=== PATIENT | male | born 1950 | race Caucasian/White ===

== ENCOUNTER → 2016-11-19 | Outpatient (CLI) | payer OTHER, MEDICARE ==
[~2016-11-19] MED LIST: Iopamidol 755 MG/ML 500 ML Multipack Bottle IVPUSH STA
--- NOTE | 2016-11-19 13:00 | CT ---
CT of the chest, abdomen and pelvis with and without contrast. HISTORY: Abnormal weight loss TECHNIQUE: Axial CT images were obtained of the chest, abdomen and pelvis before and following admin istration of 100 mL of Isovue-370 in the right antecubital fossa without complication. Coronal and s agittal reconstructions obtained. FINDINGS: Chest: The lungs are clear without focal consolidation. No pleural effusion or pneumothorax. The hea rt is normal in size without a pericardial effusion. The thoracic aorta is normal in caliber. Mild c oronary artery calcifications are noted. The main and central pulmonary arteries are patent. No medi astinal or hilar lymphadenopathy. No axillary lymphadenopathy. Abdomen: Small hepatic and splenic cysts are noted. The adrenal glands, pancreas and gallbladder portia ear normal. There is no bulky retroperitoneal lymphadenopathy or abdominal ascites. The kidneys enha nce and function symmetrically without evidence of obstructive uropathy. Pelvis: The large and small bowel are normal in caliber without evidence of obstruction. No focal pe ricolonic inflammation or stranding. The appendix appears normal. No bulky pelvic lymphadenopathy or free pelvic fluid. There is moderate prostatomegaly. The urinary bladder guardado appear moderately th ickened however the bladder is minimally filled. Degenerative changes are noted within the shoulders. No suspicious osseous abnormalities identified. IMPRESSION: 1. No acute findings demonstrated within the abdomen or pelvis. 2. Small hepatic and splenic cysts are noted.
== END ==
LOC: MW.DI 08:23
PROVIDERS: ATTEND Surgery
DX: R07.9 Chest pain, unspecified (principal); R53.81 Other malaise; R63.4 Abnormal weight loss; K76.89 Other specified diseases of liver; D73.4 Cyst of spleen
CPT/HCPCS: 71270; 74178; Q9967

== ENCOUNTER 2016-12-19 08:43 | Day surgery (SDC) | payer OTHER, MEDICARE ==
[~2016-12-19 08:43] MED LIST changes: -Iopamidol 755 MG/ML 500 ML Multipack Bottle IVPUSH STA; +Lactated Ringers 1,000 ML IV SCH; +Sodium Chloride 0.9% 10 ML Syringe FLUSH PRN; +Sodium Chloride 0.9% 2.5 ML Syringe FLUSH PRN
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
[2016-12-19] MEDS ORDERED: Midazolam 1 MG/ML 2 ML SDV ONE (11:03)
[2016-12-19] MEDS ORDERED: Propofol 200 MG/20 ML SDV ONE ×2 (11:03→12:04)
[2016-12-19] MEDS ORDERED: Lidocaine 2% 5 ML SDV ONE (11:03)
[2016-12-19] MEDS ORDERED: fentaNYL 100 MCG/2 ML SDV ONE (11:04)
--- NOTE | 2016-12-19 12:25 | PCM.OPNOTE ---
- General Post-Op/Procedure Note Date of Surgery/Procedure: 12/19/16 Operative Procedure(s): Diagnostic EGD and colonoscopy Findings: Normal upper GI and colonoscopy Pre Op Diagnosis: Unexpected weight loss Post-Op Diagnosis: Same Anesthesia Technique: MAC Primary Surgeon: Jazzy Sharma Condition: Good
--- NOTE | 2016-12-19 13:02 | PCM.POSTAN ---
POST ANESTHESIA ASSESSMENT - MENTAL STATUS Mental Status: alert, oriented - RESPIRATORY Respiratory Status: respiratory rate WNL, airway patent, O2 saturation stable - CARDIOVASCULAR CV Status: pulse rate WNL, blood pressure stable - GASTROINTESTINAL GI Status: no symptoms - POST OP HYDRATION Hydration Status: adequate & stable - OBSERVATIONS Free Text/Narrative:: no anesthesia problems
[2016-12-19 13:26] VITALS: BP 140/83
--- NOTE | 2016-12-19 20:45 | OR ---
SURGEON: KRISTEN DAVIDSON MD DATE OF PROCEDURE: 12/19/2016 PREOPERATIVE DIAGNOSIS: Unexpected weight loss. POSTOPERATIVE DIAGNOSIS: Normal upper and lower endoscopy studies. PROCEDURE PERFORMED: Diagnostic EGD and colonoscopy. INSTRUMENT USED: Endoscope and colonoscope. ANESTHESIA: MAC. EXTENT OF EXAM: To the second portion of duodenum during the endoscopic portion, to the cecum during the colonoscopic portion. PREPARATION: Fair for the colonoscopy. LIMITATIONS: None. INDICATIONS FOR EXAMINATION: The patient is a 65-year-old male, who presented to clinic with a vague constellation of complaints, most concerning of which was unexpected weight loss. The patient had a CT of the chest, abdomen, pelvis performed which appeared normal. The patient was cleared medically to have further investigation done by endoscopic means. The patient and I discussed the need for a diagnostic EGD and colonoscopy. I discussed the procedures as well as expected perioperative course. I discussed the risks, including bleeding, infection, or damage to surrounding structures, including perforation. The patient verbalized understanding and wished to proceed. PROCEDURE IN DETAIL: The patient was brought to the endoscopy suite and placed in a beach chair position. A time-out was completed verifying the patient's name, age, date of , allergies, and procedure to be performed. A bite block was placed in the patient's mouth and monitored anesthesia care was induced. Continuous oxygen was provided via nasal cannula throughout the procedure. After adequate sedation was achieved. A well lubricated endoscope was placed over the patient's tongue down into the esophagus and advanced under direct visualization to the second portion of the duodenum. A photograph was taken of the second portion of the duodenum. The duodenal mucosa all appeared normal. The scope was then brought into the stomach and photographs taken of the pylorus as well as the esophageal hiatus. The gastric mucosa and anatomy all appeared normal. Biopsies were taken of the gastric body, fundus, and antrum via cold biopsy forceps and sent for H. pylori testing. The scope was then brought into the esophagus and the esophageal mucosa carefully inspected. No abnormalities were noted. The scope was then removed from the patient and the bite block taken out of the patient's mouth. We then began the colonoscopic portion of the exam. The patient was placed in the left lateral decubitus position. A digital rectal exam was performed, which was normal. A well lubricated colonoscope was then inserted in the rectum and advanced under direct visualization to the level of the cecum. The cecum was identified by both visual and anatomic landmarks. A photograph was taken of the cecal cap. I attempted to retroflex the scope within the cecum, but was unable to do so secondary to looping of the scope within the sigmoid colon. The scope was straightened out and fully withdrawn while examining the color, texture, anatomy, integrity, mucosa from the cecum to the anal canal. The findings were consistent with normal colonic mucosa. The scope was then brought into the rectum and retroflexed to allow visualization of the anal canal opening. This appeared normal and a photograph was taken. The scope was then straightened out and removed from the patient. The patient was then transferred to the recovery room in stable condition. Cecum to anus time was 12 minutes. ENDOSCOPIC DIAGNOSIS: Normal EGD and colonoscopy. RECOMMENDATION: Follow up in the clinic in 10 years. We will send patient back to his primary care provider for any further workup. DAVID CUBA /[id number] VALENTÍN
== END 2016-12-19 13:18 | disposition home or self-care (01) ==
LOC: MW.SDS 08:43
PROVIDERS: ATTEND Surgery
PROC: 0DJD8ZZ Inspection of Lower Intestinal Tract, Via Natural or Artificial Opening Endoscopic (ICD-10-PCS; principal; 2016-12-19)
PROC: 0DB48ZX Excision of Esophagogastric Junction, Via Natural or Artificial Opening Endoscopic, Diagnostic (ICD-10-PCS; 2016-12-19)
PROC: 0DB68ZX Excision of Stomach, Via Natural or Artificial Opening Endoscopic, Diagnostic (ICD-10-PCS; 2016-12-19)
DX: R63.4 Abnormal weight loss (principal); G47.30 Sleep apnea, unspecified; K21.9 Gastro-esophageal reflux disease without esophagitis; M19.90 Unspecified osteoarthritis, unspecified site; F41.9 Anxiety disorder, unspecified; F17.210 Nicotine dependence, cigarettes, uncomplicated; Z98.890 Other specified postprocedural states; Z79.899 Other long term (current) drug therapy
CPT/HCPCS: 43239; 45378; J2250; J3010; J7120; 00740; 88305; 88312; J2704

== ENCOUNTER 2017-03-22 16:30 | Emergency (ER) | payer MEDICARE, OTHER ==
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
[2017-03-22 19:41] VITALS: BP 112/70
--- NOTE | 2017-03-24 13:36 | CT ---
EXAM DATE: 03/22/17 PATIENT'S AGE: 66 Patient: SHIRA DURAN Facility: [place], [place] Site . Site : 1950 Study: CT Head WO CONT [id number]/[id number] 5:46:14 PM Ordering Physician: Adriano Aviles Final Report: Indication: Swelling and ecchymosis after injury. Comparison: None available. Technique: Multi detector noncontrast images posterior fossa to thoracic inlet. Findings: No mass, mass effect or midline shift. No intra-axial or extra-axial hemorrhage or abnormal fluid. Mildly prominent for stated age ventricles and sulci suggests mild global atrophy. Moderately prominent infiltrating subcutaneous air through the right zygoma and cheek out of the [id number] inferiorly and into the master fossa. This extends to the inferior anterior right frontal skull margin. Tear or portal air but non behind the conus. Globes are symmetric. Retrobulbar are soft tissues are normal. No evident fracture in the field of view. Temporomandibular alignment is anatomic. Impression: 1. Moderately extensive soft tissue air right face and periorbital region without fracture in the field of view. CT of the maxi facial structures recommended. 2. Mild diffuse cerebral and cerebellar atrophy. No significant acute intracranial findings. Please note that all CT scans at this facility use dose modulation, iterative reconstruction, and/or weight-based dosing when appropriate to reduce radiation dose to as low as reasonably achievable. Dictated by Tate Baez MD @ Mar 22 2017 5:55PM (Electronic Signature) Report Signed by Proxy. VALENTÍN
== END 2017-03-22 18:30 | disposition home or self-care (01) ==
LOC: MW.ED 16:30
DX: S00.83XA Contusion of other part of head, initial encounter (principal); K21.9 Gastro-esophageal reflux disease without esophagitis; W01.198A Fall on same level from slipping, tripping and stumbling with subsequent striking against other object, initial encounter
CPT/HCPCS: 70450; 70450-26; 93005; 99282; 99284-25

== ENCOUNTER 2018-12-01 18:07 | Emergency (ER) | payer MEDICARE ==
[2018-12-01] MEDS ORDERED: Sodium Chloride 0.9% 10 ML Syringe FLUSH PRN (18:08)
[2018-12-01] MEDS ORDERED: Sodium Chloride 0.9% 2.5 ML Syringe FLUSH PRN (18:08)
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
[2018-12-01] MEDS ORDERED: Aspirin 81 MG Tab.Chew PO ONE (18:17)
--- NOTE | 2018-12-01 19:05 | CR ---
INDICATION: Chest pain TECHNIQUE: Chest radiograph 1 view COMPARISON: None FINDINGS: Mediastinum: The mediastinum is normal in appearance. The heart silhouette is normal in size and morphology. Lung: Bilateral hyperinflation is present and suggestive of moderate pulmonary emphysema. No sign of pleural effusion seen. No pneumothorax is identified. Musculoskeletal: Unremarkable for age. IMPRESSION: 1. Bilateral hyperinflation is present and suggestive of moderate pulmonary emphysema. Dictated by: Jose Miguel Marrufo MD @ 12/01/2018 19:03:26 (Electronically Signed)
[2018-12-01 19:12] LABS: CHLORIDE,CL 105 mmol/L (98-107); SODIUM,NA 140 mmol/L (136-148)
[2018-12-01 19:52] VITALS: BP 136/70
== END 2018-12-01 19:51 | disposition home or self-care (01) ==
LOC: MW.ED 18:07
DX: R07.9 Chest pain, unspecified (principal)
CPT/HCPCS: 36415; 71045; 80053; 84484; 85025; 93005; 99284; A9270

== ENCOUNTER 2019-01-08 19:28 | Emergency (ER) | payer MEDICARE ==
[2019-01-08] MEDS ORDERED: Sodium Chloride 0.9% 2.5 ML Syringe FLUSH PRN (19:31)
[2019-01-08] MEDS ORDERED: Aspirin 81 MG Tab.Chew PO ONE (19:31)
[2019-01-08] MEDS ORDERED: Pantoprazole 40 MG Vial IVPUSH ONE (19:31)
[2019-01-08] MEDS ORDERED: Sodium Chloride 0.9% 10 ML Syringe FLUSH PRN (19:31)
[2019-01-08] MEDS ORDERED: Ketorolac 30 MG/ML SDV IVPUSH ONE (19:31)
[2019-01-08] MEDS ORDERED: Water For Injection, Sterile 20 ML SDV INJECT ONE (19:33)
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
[2019-01-08 19:39] VITALS: BP 156/75
[2019-01-08 19:59] LABS: CHLORIDE,CL 104 mmol/L (98-107); SODIUM,NA 141 mmol/L (136-148)
--- NOTE | 2019-01-08 20:24 | CR ---
Indication: Chest pain. Shortness of breath. Technique: A single AP portable view of the chest was obtained. Comparison: December 01, 2018. Findings: The heart is normal in size. The lungs are clear. No infiltrate, pleural effusion, or pneumothorax is identified. Impression: No acute cardiopulmonary process. Dictated by Mya Locke MD @ Jan 08 2019 8:17PM Signed by Dr. Mya Locke @ Jan 08 2019 8:23PM
== END 2019-01-08 20:59 | disposition home or self-care (01) ==
LOC: MW.ED 19:28
DX: R07.89 Other chest pain (principal); J44.9 Chronic obstructive pulmonary disease, unspecified
CPT/HCPCS: 71045; 80053; 81003; 82150; 83690; 84484; 85025; 86677; 93005; 96374; 96375; 99285; A9270; C9113; J1885

== ENCOUNTER 2019-11-02 17:25 | Emergency (ER) | payer MEDICARE, OTHER ==
[2019-11-02] MEDS ORDERED: Ziprasidone HCl 20 MG Cap PO STA ×2 (17:57→19:09)
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
[2019-11-02 19:52] VITALS: BP 127/86; PULSE 64
== END 2019-11-02 19:39 | disposition home or self-care (01) ==
LOC: MW.ED 17:25
DX: G31.84 Mild cognitive impairment of uncertain or unknown etiology (principal); R45.1 Restlessness and agitation; Z91.19 Patient's noncompliance with other medical treatment and regimen; K21.9 Gastro-esophageal reflux disease without esophagitis; F41.9 Anxiety disorder, unspecified; F32.9 Major depressive disorder, single episode, unspecified; Z79.899 Other long term (current) drug therapy
CPT/HCPCS: 93005; 99285; A9270; 99283

== ENCOUNTER 2020-01-26 17:25 | Emergency (ER) | payer MEDICARE, OTHER ==
[2020-01-26] MEDS ORDERED: Sodium Chloride 0.9% 10 ML Syringe FLUSH PRN (17:41)
[2020-01-26] MEDS ORDERED: Sodium Chloride 0.9% 2.5 ML Syringe FLUSH PRN (17:41)
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
[2020-01-26 17:54] VITALS: PULSE 77
--- NOTE | 2020-01-26 18:20 | CR ---
Chest: Portable view of the chest was obtained in AP projection. Comparison: Prior chest x-ray of 01/08/19. Heart size and mediastinum are normal. Lungs are clear. No acute parenchymal change is seen. Impression: 1. Nothing acute is seen on portable chest x-ray. Diagnostic code #1 This report was dictated in MDT
[2020-01-26] MEDS ORDERED: Ziprasidone HCl 20 MG Cap PO STA (18:21)
[2020-01-26 18:30] LABS: BLOOD UREA NITROGEN,BUN 17 mg/dL (7.0-18.0); CARBON DIOXIDE,CO2 26.3 mmol/L (21.0-32.0); CHLORIDE,CL 106 mmol/L (98-107); GLUCOSE RANDOM 96 mg/dL (74-106); POTASSIUM,K 4.3 mmol/L (3.5-5.1); SODIUM,NA 142 mmol/L (136-148)
[2020-01-26 20:00] VITALS: BP 134/86
== END 2020-01-26 19:57 | disposition home or self-care (01) ==
LOC: MW.ED 17:25
DX: N39.0 Urinary tract infection, site not specified (principal); F41.9 Anxiety disorder, unspecified; F32.9 Major depressive disorder, single episode, unspecified; K21.9 Gastro-esophageal reflux disease without esophagitis; Z79.899 Other long term (current) drug therapy
CPT/HCPCS: 36415; 71045; 80053; 81001; 84484; 85025; 93005; 99285; A9270; 99283

== ENCOUNTER 2020-01-27 13:14 | Inpatient (IN) | payer MEDICARE, OTHER ==
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
[2020-01-27] MEDS ORDERED: OLANZapine 5 MG Tab.DIS PO ONE ×2 (14:16→14:30)
--- NOTE | 2020-01-27 15:49 | CT ---
Head CT Technique: Multiple axial sections through the brain were obtained. Intravenous contrast was not utilized. Comparison: Previous head CT study of 03/22/17. Findings: Ventricles along with basal cisterns and sulci over the convexities are moderately prominent. Sulci over the cerebellar convexities are mildly prominent. 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 Very minimal diminished density is noted within the periventricular-like matter which is most likely due to small vessel ischemic demyelination change. No other abnormal parenchymal densities are seen. No evidence of intracranial hemorrhage. No midline shift or mass-effect is seen. Bone window settings were reviewed. Chronic opacification within the inferior right mastoid sinus is noted. Visualized paranasal sinuses show nothing acute. No acute calvarial finding is seen. Impression: 1. Senescent change as described above. 2. No acute intracranial abnormality is identified. Diagnostic code #2 This report was dictated in MDT
[2020-01-27] MEDS ORDERED: Ziprasidone Mesylate 20 MG Vial IM ONE (16:16)
[2020-01-27] MEDS ORDERED: Water For Injection, Sterile 20 ML SDV INJECT ONE (16:16)
[2020-01-27] MEDS ORDERED: Albuterol/Ipratropium 3.0-0.5 MG/3 ML Neb Soln NEB PRN (16:46)
[2020-01-27] MEDS ORDERED: OLANZapine 10 MG Vial IM PRN (16:48)
[2020-01-27] MEDS ORDERED: diphenhydrAMINE 50 MG/ML SDV IM PRN (16:49)
[2020-01-27] MEDS ORDERED: Haloperidol Lactate 5 MG/ML SDV IM PRN (17:29)
[2020-01-27] MEDS ORDERED: LORazepam 2 MG/ML SDV IM PRN (17:30)
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
[2020-01-27] MEDS: QUEtiapine 100 MG Tab PO SCH ×2 (18:04→20:06)
[2020-01-27] MEDS: Enoxaparin 40 MG/0.4 ML Syringe SUBCUT SCH (18:04)
[2020-01-27] MEDS: Donepezil 10 MG Tab PO SCH (20:06)
[2020-01-27] MEDS ORDERED: QUEtiapine 25 MG Tab PO SCH (21:00)
[2020-01-28 06:26] LABS: BLOOD UREA NITROGEN,BUN 17 mg/dL (7.0-18.0); CARBON DIOXIDE,CO2 28.5 mmol/L (21.0-32.0); CHLORIDE,CL 108 mmol/L (98-107); GLUCOSE RANDOM 92 mg/dL (74-106); POTASSIUM,K 3.9 mmol/L (3.5-5.1); SODIUM,NA 143 mmol/L (136-148)
--- NOTE | 2020-01-28 10:10 | PCM.PN ---
- General Info Date of Service: 01/28/20 Admission Dx/Problem (Free Text): Admission Diagnosis/Problem Admission Diagnosis/Problem Altered mental status Subjective Update: Patient seen and examined at bedside, no acute distress, anxious to go home, paranoid about changing his dosages of meds. - Review of Systems General: Denies: Fever, Weakness, Fatigue Pulmonary: Denies: Shortness of Breath, Pleuritic Chest Pain Cardiovascular: Denies: Chest Pain, Palpitations, Dyspnea on Exertion Gastrointestinal: Denies: Abdominal Pain, Constipation Genitourinary: Denies: Dysuria, Frequency, Burning Neurological: Reports: Confusion. Denies: Dizziness, Headache, Syncope Psychiatric: Reports: Confusion, Mood Lability, Anxiety, Agitation - Patient Data Vitals - Most Recent: Last Vital Signs Temp 36.0 C L 01/28/20 07:53 Pulse 45 L 01/28/20 07:53 Resp 18 01/28/20 07:53 BP 133/71 01/28/20 07:53 Pulse Ox 97 01/28/20 07:53 Weight - Most Recent: 83.234 kg I&O - Last 24 Hours: Intake & Output 01/27/20 01/28/20 01/28/20 22:59 06:59 14:59 Intake Total 395 Output Total 200 Balance 195 Lab Results Last 24 Hours: Laboratory Results - last 24 hr 01/27/20 01/27/20 01/28/20 Range/Units 15:05 15:05 05:25 WBC 5.36 (4.0-11.0) K/uL RBC 4.25 L (4.50-5.90) M/uL Hgb 13.3 (13.0-17.0) g/dL Hct 39.3 (38.0-50.0) % MCV 92.5 (80.0-98.0) fL MCH 31.3 (27.0-32.0) pg MCHC 33.8 (31.0-37.0) g/dL RDW Std Deviation 43.9 (28.0-62.0) fl RDW Coeff of Nilay 13 (11.0-15.0) % Plt Count 200 (150-400) K/uL MPV 10.20 (7.40-12.00) fL Neut % (Auto) 46.3 L (48.0-80.0) % Lymph % (Auto) 36.8 (16.0-40.0) % Gem % (Auto) 12.9 (0.0-15.0) % Eos % (Auto) 3.4 (0.0-7.0) % Baso % (Auto) 0.6 (0.0-1.5) % Neut # (Auto) 2.5 (1.4-5.7) K/uL Lymph # (Auto) 2.0 (0.6-2.4) K/uL Gem # (Auto) 0.7 (0.0-0.8) K/uL Eos # (Auto) 0.2 (0.0-0.7) K/uL Baso # (Auto) 0.0 (0.0-0.1) K/uL Sodium (136-148) mmol/L Potassium (3.5-5.1) mmol/L Chloride (98-107) mmol/L Carbon Dioxide (21.0-32.0) mmol/L BUN (7.0-18.0) mg/dL Creatinine (0.8-1.3) mg/dL Est Cr Clr Drug Dosing mL/min Estimated GFR (MDRD) ml/min Glucose (74-106) mg/dL Calcium (8.5-10.1) mg/dL Phosphorus (2.6-4.7) mg/dL Magnesium (1.8-2.4) mg/dL Urine Color YELLOW Urine Appearance CLEAR Urine pH 5.5 (5.0-8.0) Ur Specific [place] >= 1.030 (1.001-1.035) Urine Protein 30 H (NEGATIVE) mg/dL Urine Glucose (UA) NEGATIVE (NEGATIVE) mg/dL Urine Ketones NEGATIVE (NEGATIVE) mg/dL Urine Occult Blood NEGATIVE (NEGATIVE) Urine Nitrite NEGATIVE (NEGATIVE) Urine Bilirubin NEGATIVE (NEGATIVE) Urine Urobilinogen 0.2 (<2.0) EU/dL Ur Leukocyte Esterase NEGATIVE (NEGATIVE) Urine RBC NONE SEEN (0-2/HPF) Urine WBC 2-6 (0-5/HPF) Ur Epithelial Cells RARE (NONE-FEW) Calcium Oxalate Crystal RARE (NEGATIVE) Amorphous Sediment FEW (NEGATIVE) Urine Bacteria FEW (NEGATIVE) Urine Mucus FEW (NONE-MOD) Urine Sperm FEW (NEGATIVE) Urine Opiates Screen NEGATIVE (NEGATIVE) Ur Oxycodone Screen NEGATIVE (NEGATIVE) Urine Methadone Screen NEGATIVE (NEGATIVE) Ur Barbiturates Screen NEGATIVE (NEGATIVE) Ur Phencyclidine Scrn NEGATIVE (NEGATIVE) Ur Amphetamine Screen NEGATIVE (NEGATIVE) U Methamphetamines Scrn NEGATIVE (NEGATIVE) U Benzodiazepines Scrn NEGATIVE (NEGATIVE) U Cocaine Metab Screen NEGATIVE (NEGATIVE) U Marijuana (THC) Screen NEGATIVE (NEGATIVE) 01/28/20 Range/Units 05:25 WBC (4.0-11.0) K/uL RBC (4.50-5.90) M/uL Hgb (13.0-17.0) g/dL Hct (38.0-50.0) % MCV (80.0-98.0) fL MCH (27.0-32.0) pg MCHC (31.0-37.0) g/dL RDW Std Deviation (28.0-62.0) fl RDW Coeff of Nilay (11.0-15.0) % Plt Count (150-400) K/uL MPV (7.40-12.00) fL Neut % (Auto) (48.0-80.0) % Lymph % (Auto) (16.0-40.0) % Gem % (Auto) (0.0-15.0) % Eos % (Auto) (0.0-7.0) % Baso % (Auto) (0.0-1.5) % Neut # (Auto) (1.4-5.7) K/uL Lymph # (Auto) (0.6-2.4) K/uL Gem # (Auto) (0.0-0.8) K/uL Eos # (Auto) (0.0-0.7) K/uL Baso # (Auto) (0.0-0.1) K/uL Sodium 143 (136-148) mmol/L Potassium 3.9 (3.5-5.1) mmol/L Chloride 108 H (98-107) mmol/L Carbon Dioxide 28.5 (21.0-32.0) mmol/L BUN 17 (7.0-18.0) mg/dL Creatinine 0.9 (0.8-1.3) mg/dL Est Cr Clr Drug Dosing 81.34 mL/min Estimated GFR (MDRD) > 60.0 ml/min Glucose 92 (74-106) mg/dL Calcium 8.3 L (8.5-10.1) mg/dL Phosphorus 3.0 (2.6-4.7) mg/dL Magnesium 1.9 (1.8-2.4) mg/dL Urine Color Urine Appearance Urine pH (5.0-8.0) Ur Specific [place] (1.001-1.035) Urine Protein (NEGATIVE) mg/dL Urine Glucose (UA) (NEGATIVE) mg/dL Urine Ketones (NEGATIVE) mg/dL Urine Occult Blood (NEGATIVE) Urine Nitrite (NEGATIVE) Urine Bilirubin (NEGATIVE) Urine Urobilinogen (<2.0) EU/dL Ur Leukocyte Esterase (NEGATIVE) Urine RBC (0-2/HPF) Urine WBC (0-5/HPF) Ur Epithelial Cells (NONE-FEW) Calcium Oxalate Crystal (NEGATIVE) Amorphous Sediment (NEGATIVE) Urine Bacteria (NEGATIVE) Urine Mucus (NONE-MOD) Urine Sperm (NEGATIVE) Urine Opiates Screen (NEGATIVE) Ur Oxycodone Screen (NEGATIVE) Urine Methadone Screen (NEGATIVE) Ur Barbiturates Screen (NEGATIVE) Ur Phencyclidine Scrn (NEGATIVE) Ur Amphetamine Screen (NEGATIVE) U Methamphetamines Scrn (NEGATIVE) U Benzodiazepines Scrn (NEGATIVE) U Cocaine Metab Screen (NEGATIVE) U Marijuana (THC) Screen (NEGATIVE) Med Orders - Current: Current Medications Albuterol/Ipratropium (Duoneb 3.0-0.5 Mg/3 Ml) 3 ml NEB Q4HRRT PRN PRN Reason: Shortness Of Breath/wheezing Diphenhydramine HCl (Benadryl) 25 mg IM Q4H PRN PRN Reason: Agitation Donepezil HCl (Aricept) 10 mg PO BEDTIME [facility] Last Admin: 01/27/20 20:06 Dose: 10 mg Enoxaparin Sodium (Lovenox) 40 mg SUBCUT Q24H [facility] Last Admin: 01/27/20 18:04 Dose: 40 mg Haloperidol Lactate (Haldol) 5 mg IM Q6H PRN PRN Reason: Agitation Lorazepam (Ativan) 2 mg IM Q4H PRN PRN Reason: Agitation Quetiapine Fumarate (Seroquel) 100 mg PO BEDTIME [facility] Last Admin: 01/27/20 20:06 Dose: Not Given Discontinued Medications Olanzapine (Zyprexa Zydis) 10 mg PO ONETIME ONE Stop: 01/27/20 14:31 Last Admin: 01/27/20 15:02 Dose: 10 mg Olanzapine (Zyprexa) 5 mg IM Q6H PRN PRN Reason: Agitation Quetiapine Fumarate (Seroquel) 25 mg PO BID [facility] Sterile Water (Sterile Water For Injection) 1.2 ml INJECT ONETIME ONE Stop: 01/27/20 16:17 Last Admin: 01/27/20 17:07 Dose: 1.2 ml Ziprasidone (Geodon) 20 mg IM ONETIME ONE Stop: 01/27/20 16:17 Last Admin: 01/27/20 17:06 Dose: 20 mg - Exam General: Alert, Oriented, No Acute Distress Neck: Supple Lungs: Clear to Auscultation, Normal Respiratory Effort Cardiovascular: Regular Rate, Regular Rhythm Extremities: Normal Inspection, Normal Range of Motion Peripheral Pulses: 3+: Dorsalis Pedis (L), Dorsalis Pedis (R) Neurological: Normal Gait, Reflexes Equal Bilateral, Sensation Intact Psy/Mental Status: Alert, Labile Mood, Anxious, Hallucinations (sees dots on his hands) Sepsis Event Note - Evaluation Sepsis Screening Result: No Definite Risk - Focused Exam Vital Signs: Vital Signs Temp Pulse Pulse Resp BP Pulse Ox 01/28/20 07:53 36.0 C L 42 L 45 L 18 133/71 97 01/28/20 04:00 36.5 C 54 L 18 118/71 98 Date Exam was Performed: 01/29/20 Time Exam was Performed: 10:32 - Problem List & Annotations (1) Altered mental state SNOMED Code(s): 366601471 Code(s): R41.82 - ALTERED MENTAL STATUS, UNSPECIFIED Status: Acute Current Visit: Yes (2) Fronto-temporal dementia SNOMED Code(s): 990380094 Code(s): G31.09 - OTHER FRONTOTEMPORAL DEMENTIA; F02.80 - DEMENTIA IN OTH DISEASES CLASSD ELSWHR W/O BEHAVRL DISTURB Status: Acute Current Visit: Yes (3) Medication noncompliance due to cognitive impairment SNOMED Code(s): 836048312, 120695263 Code(s): Z91.14 - PATIENT'S OTHER NONCOMPLIANCE WITH MEDICATION REGIMEN Status: Acute Current Visit: No - Problem List Review Problem List Initiated/Reviewed/Updated: Yes - My Orders Last 24 Hours: My Active Orders 01/27/20 16:46 Oxygen Therapy [RC] PRN VTE/DVT Education [RC] Q12H Vital Signs [RC] Q4H Albuterol/Ipratropium [DuoNeb 3.0-0.5 MG/3 ML] 3 ml NEB Q4HRRT PRN Resuscitation Status Routine 01/27/20 16:47 RT Aerosol Therapy [RC] ASDIRECTED 01/27/20 16:49 diphenhydrAMINE [Benadryl] 25 mg IM Q4H PRN 01/27/20 16:54 Consult to Case Management/[employer]retcher [employer] Drier [CONS] Routine 01/27/20 17:00 Enoxaparin [Lovenox] 40 mg SUBCUT Q24H 01/27/20 17:23 QUEtiapine [SEROqueL] 100 mg PO BEDTIME 01/27/20 17:29 Haloperidol Lactate [Haldol] 5 mg IM Q6H PRN 01/27/20 17:30 LORazepam [Ativan] 2 mg IM Q4H PRN 01/27/20 19:17 Consult to Physician [CONS] Routine 01/27/20 19:18 Notify Provider Consults [RC] ASDIRECTED 01/27/20 21:00 Donepezil [Aricept] 10 mg PO BEDTIME 01/27/20 Dinner Heart Healthy Diet [DIET] - Plan Plan:: 69 y/o M admitted for AMS Work up didn't revele any metabolic cause CT scan noted, 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 Sharp, Will start Seroquel 100 mg bedtime, 50 mg in AM Haldol, Ativan, Benadryl PRN agitation Hold Lexapro Lovenox for DVT ppx I spoke with patients Neurologist, states patient needs to be placed in a Memory care unit due to worsening Dementia Dr Sharp consulted to assess if patient is safe to home, or if he needs to be placed directly from the hospital into a memory care unit,
--- NOTE | 2020-01-28 13:11 | PCM.CONSN ---
- General Info Date of Service: 01/28/20 Admission Dx/Problem (Free Text): Admission Diagnosis/Problem Admission Diagnosis/Problem Altered mental status Subjective Update: He started having problems with visual impairment and communication difficulty around to 2016. By first visit in neurology clinic in January 2019, he was having paranoia, hallucinations. He was started on Seroquel which helped with agitation, but he continued to have recurrent bouts of agitation and will wander off endangering himself by walking in streets. I spoke to his this morning. For the last 2 weeks, he "hates me hates his daughter and hates everybody around him". On Friday, he was standing on the road in front of [employer]'s twirling around. He was actually jumping in front of cars as well. He wouldn't get into the daughter's care. Police got him to get into vehicle and took him to ED, and he was released. He was back in the ED yesterday after doing the same thing. He had refused to take his medication Fri. - Patient Data Vitals - Most Recent: Last Vital Signs Temp 36.3 C 01/28/20 12:00 Pulse 57 L 01/28/20 12:00 Resp 18 01/28/20 12:00 BP 133/71 01/28/20 12:00 Pulse Ox 96 01/28/20 12:00 Weight - Most Recent: 83.234 kg I&O - Last 24 Hours: Intake & Output 01/27/20 01/28/20 01/28/20 22:59 06:59 14:59 Intake Total 395 Output Total 200 Balance 195 Lab Results Last 24 Hours: Laboratory Results - last 24 hr 01/27/20 01/27/20 01/28/20 Range/Units 15:05 15:05 05:25 WBC 5.36 (4.0-11.0) K/uL RBC 4.25 L (4.50-5.90) M/uL Hgb 13.3 (13.0-17.0) g/dL Hct 39.3 (38.0-50.0) % MCV 92.5 (80.0-98.0) fL MCH 31.3 (27.0-32.0) pg MCHC 33.8 (31.0-37.0) g/dL RDW Std Deviation 43.9 (28.0-62.0) fl RDW Coeff of Nilay 13 (11.0-15.0) % Plt Count 200 (150-400) K/uL MPV 10.20 (7.40-12.00) fL Neut % (Auto) 46.3 L (48.0-80.0) % Lymph % (Auto) 36.8 (16.0-40.0) % Saline % (Auto) 12.9 (0.0-15.0) % Eos % (Auto) 3.4 (0.0-7.0) % Baso % (Auto) 0.6 (0.0-1.5) % Neut # (Auto) 2.5 (1.4-5.7) K/uL Lymph # (Auto) 2.0 (0.6-2.4) K/uL Saline # (Auto) 0.7 (0.0-0.8) K/uL Eos # (Auto) 0.2 (0.0-0.7) K/uL Baso # (Auto) 0.0 (0.0-0.1) K/uL Sodium (136-148) mmol/L Potassium (3.5-5.1) mmol/L Chloride (98-107) mmol/L Carbon Dioxide (21.0-32.0) mmol/L BUN (7.0-18.0) mg/dL Creatinine (0.8-1.3) mg/dL Est Cr Clr Drug Dosing mL/min Estimated GFR (MDRD) ml/min Glucose (74-106) mg/dL Calcium (8.5-10.1) mg/dL Phosphorus (2.6-4.7) mg/dL Magnesium (1.8-2.4) mg/dL TSH 3rd Generation (0.36-3.74) uIU/mL Urine Color YELLOW Urine Appearance CLEAR Urine pH 5.5 (5.0-8.0) Ur Specific [place] >= 1.030 (1.001-1.035) Urine Protein 30 H (NEGATIVE) mg/dL Urine Glucose (UA) NEGATIVE (NEGATIVE) mg/dL Urine Ketones NEGATIVE (NEGATIVE) mg/dL Urine Occult Blood NEGATIVE (NEGATIVE) Urine Nitrite NEGATIVE (NEGATIVE) Urine Bilirubin NEGATIVE (NEGATIVE) Urine Urobilinogen 0.2 (<2.0) EU/dL Ur Leukocyte Esterase NEGATIVE (NEGATIVE) Urine RBC NONE SEEN (0-2/HPF) Urine WBC 2-6 (0-5/HPF) Ur Epithelial Cells RARE (NONE-FEW) Calcium Oxalate Crystal RARE (NEGATIVE) Amorphous Sediment FEW (NEGATIVE) Urine Bacteria FEW (NEGATIVE) Urine Mucus FEW (NONE-MOD) Urine Sperm FEW (NEGATIVE) Urine Opiates Screen NEGATIVE (NEGATIVE) Ur Oxycodone Screen NEGATIVE (NEGATIVE) Urine Methadone Screen NEGATIVE (NEGATIVE) Ur Barbiturates Screen NEGATIVE (NEGATIVE) Ur Phencyclidine Scrn NEGATIVE (NEGATIVE) Ur Amphetamine Screen NEGATIVE (NEGATIVE) U Methamphetamines Scrn NEGATIVE (NEGATIVE) U Benzodiazepines Scrn NEGATIVE (NEGATIVE) U Cocaine Metab Screen NEGATIVE (NEGATIVE) U Marijuana (THC) Screen NEGATIVE (NEGATIVE) 01/28/20 01/28/20 Range/Units 05:25 05:25 WBC (4.0-11.0) K/uL RBC (4.50-5.90) M/uL Hgb (13.0-17.0) g/dL Hct (38.0-50.0) % MCV (80.0-98.0) fL MCH (27.0-32.0) pg MCHC (31.0-37.0) g/dL RDW Std Deviation (28.0-62.0) fl RDW Coeff of [place]ay (11.0-15.0) % Plt Count (150-400) K/uL MPV (7.40-12.00) fL Neut % (Auto) (48.0-80.0) % Lymph % (Auto) (16.0-40.0) % Saline % (Auto) (0.0-15.0) % Eos % (Auto) (0.0-7.0) % Baso % (Auto) (0.0-1.5) % Neut # (Auto) (1.4-5.7) K/uL Lymph # (Auto) (0.6-2.4) K/uL Saline # (Auto) (0.0-0.8) K/uL Eos # (Auto) (0.0-0.7) K/uL Baso # (Auto) (0.0-0.1) K/uL Sodium 143 (136-148) mmol/L Potassium 3.9 (3.5-5.1) mmol/L Chloride 108 H (98-107) mmol/L Carbon Dioxide 28.5 (21.0-32.0) mmol/L BUN 17 (7.0-18.0) mg/dL Creatinine 0.9 (0.8-1.3) mg/dL Est Cr Clr Drug Dosing 81.34 mL/min Estimated GFR (MDRD) > 60.0 ml/min Glucose 92 (74-106) mg/dL Calcium 8.3 L (8.5-10.1) mg/dL Phosphorus 3.0 (2.6-4.7) mg/dL Magnesium 1.9 (1.8-2.4) mg/dL TSH 3rd Generation 2.87 (0.36-3.74) uIU/mL Urine Color Urine Appearance Urine pH (5.0-8.0) Ur Specific [place] (1.001-1.035) Urine Protein (NEGATIVE) mg/dL Urine Glucose (UA) (NEGATIVE) mg/dL Urine Ketones (NEGATIVE) mg/dL Urine Occult Blood (NEGATIVE) Urine Nitrite (NEGATIVE) Urine Bilirubin (NEGATIVE) Urine Urobilinogen (<2.0) EU/dL Ur Leukocyte Esterase (NEGATIVE) Urine RBC (0-2/HPF) Urine WBC (0-5/HPF) Ur Epithelial Cells (NONE-FEW) Calcium Oxalate Crystal (NEGATIVE) Amorphous Sediment (NEGATIVE) Urine Bacteria (NEGATIVE) Urine Mucus (NONE-MOD) Urine Sperm (NEGATIVE) Urine Opiates Screen (NEGATIVE) Ur Oxycodone Screen (NEGATIVE) Urine Methadone Screen (NEGATIVE) Ur Barbiturates Screen (NEGATIVE) Ur Phencyclidine Scrn (NEGATIVE) Ur Amphetamine Screen (NEGATIVE) U Methamphetamines Scrn (NEGATIVE) U Benzodiazepines Scrn (NEGATIVE) U Cocaine Metab Screen (NEGATIVE) U Marijuana (THC) Screen (NEGATIVE) Med Orders - Current: Current Medications Albuterol/Ipratropium (Duoneb 3.0-0.5 Mg/3 Ml) 3 ml NEB Q4HRRT PRN PRN Reason: Shortness Of Breath/wheezing Diphenhydramine HCl (Benadryl) 25 mg IM Q4H PRN PRN Reason: Agitation Donepezil HCl (Aricept) 10 mg PO BEDTIME [facility] Last Admin: 01/27/20 20:06 Dose: 10 mg Enoxaparin Sodium (Lovenox) 40 mg SUBCUT Q24H [facility] Last Admin: 01/27/20 18:04 Dose: 40 mg Haloperidol Lactate (Haldol) 5 mg IM Q6H PRN PRN Reason: Agitation Lorazepam (Ativan) 2 mg IM Q4H PRN PRN Reason: Agitation Quetiapine Fumarate (Seroquel) 100 mg PO BEDTIME [facility] Last Admin: 01/27/20 20:06 Dose: Not Given Quetiapine Fumarate (Seroquel) 50 mg PO DAILY [facility] Last Admin: 01/28/20 10:54 Dose: 50 mg Discontinued Medications Olanzapine (Zyprexa Zydis) 10 mg PO ONETIME ONE Stop: 01/27/20 14:31 Last Admin: 01/27/20 15:02 Dose: 10 mg Olanzapine (Zyprexa) 5 mg IM Q6H PRN PRN Reason: Agitation Quetiapine Fumarate (Seroquel) 25 mg PO BID [facility] Sterile Water (Sterile Water For Injection) 1.2 ml INJECT ONETIME ONE Stop: 01/27/20 16:17 Last Admin: 01/27/20 17:07 Dose: 1.2 ml Ziprasidone (Geodon) 20 mg IM ONETIME ONE Stop: 01/27/20 16:17 Last Admin: 01/27/20 17:06 Dose: 20 mg - Exam Physical Findings Comments:: Gen: no acute distress MS; S: tangential ,psychomotor agitation when asked questions about reason for being in hospital. Word finding difficulty, paraphasic error Sepsis Event Note - Evaluation Sepsis Screening Result: No Definite Risk - Focused Exam Vital Signs: Vital Signs Temp Pulse Pulse Resp BP Pulse Ox 01/28/20 12:00 36.3 C 57 L 18 133/71 96 01/28/20 07:53 36.0 C L 42 L 45 L 18 133/71 97 01/28/20 04:00 36.5 C 54 L 18 118/71 98 Date Exam was Performed: 01/28/20 Time Exam was Performed: 13:05 Consult PN Assessment/Plan Procedures: Procedures ASSAY OF AMYLASE (01/08/19) ASSAY OF LIPASE (01/08/19) ASSAY OF TROPONIN QUANT (01/08/19) ASSAY THYROID STIM HORMONE (02/24/19) CARDIOVASCULAR STRESS TEST (12/06/16) COMPLETE CBC W/AUTO DIFF WBC (01/08/19) COMPREHEN METABOLIC PANEL (01/08/19) CT ABD & PELV 1/> REGNS (11/19/16) CT HEAD/BRAIN W/O DYE (03/22/17) CT THORAX W/O & W/DYE (11/19/16) DIAGNOSTIC COLONOSCOPY (12/19/16) EGD BIOPSY SINGLE/MULTIPLE (12/19/16) ELECTROCARDIOGRAM TRACING (11/02/19) EMERGENCY DEPT VISIT (11/02/19) EMERGENCY DEPT VISIT (12/01/18) HELICOBACTER PYLORI ANTIBODY (01/08/19) HT MUSCLE IMAGE SPECT MULT (12/06/16) OFFICE/OUTPATIENT VISIT NEW (02/24/19) ROUTINE VENIPUNCTURE (02/24/19) THER/PROPH/DIAG INJ IV PUSH (01/08/19) TX/PRO/DX INJ NEW DRUG ADDON (01/08/19) URINALYSIS AUTO W/O SCOPE (01/08/19) VITAMIN B-12 (02/24/19) X-RAY EXAM CHEST 1 VIEW (01/08/19) (1) Agitation due to dementia SNOMED Code(s): 419743069 Code(s): F03.91 - UNSPECIFIED DEMENTIA WITH BEHAVIORAL DISTURBANCE Current Visit: Yes (2) Fronto-temporal dementia SNOMED Code(s): 040128679 Code(s): G31.09 - OTHER FRONTOTEMPORAL DEMENTIA; F02.80 - DEMENTIA IN OTH DISEASES CLASSD ELSWHR W/O BEHAVRL DISTURB Current Visit: Yes Assessment:: Agitation due to dementia: No metabolic cause has been identified. This is likely related to dementia. Pattern over the last 11 months has been periods of severe agitation leading to hazardous behavior (driving after license was taken away due to dementia, wandering off). In between episodes, he and his manage reasonably well the but the bouts are occurring with shorter manageable periods in between. I spoke to his , and for his safety, I recommend a memory care facility. I also recommend increased Seroquel dose 50 mg, 100 mg. Problem List Initiated/Reviewed/Updated: Yes
[2020-01-28] MEDS: Enoxaparin 40 MG/0.4 ML Syringe SUBCUT SCH (17:37)
[2020-01-28] MEDS: QUEtiapine 100 MG Tab PO SCH (21:11)
[2020-01-28] MEDS: Donepezil 10 MG Tab PO SCH (21:11)
--- NOTE | 2020-01-29 11:02 | PCM.PN ---
- General Info Date of Service: 01/29/20 Admission Dx/Problem (Free Text): Admission Diagnosis/Problem Admission Diagnosis/Problem Altered mental status Subjective Update: Patient seen and examined at bedside, no acute distress, anxious to go home, paranoid about changing his dosages of meds. - Review of Systems General: Denies: Fever, Weakness, Malaise Pulmonary: Denies: Shortness of Breath, Pleuritic Chest Pain Cardiovascular: Denies: Chest Pain, Palpitations Gastrointestinal: Denies: Abdominal Pain, Constipation, Decreased Appetite Genitourinary: Denies: Dysuria, Frequency, Burning Musculoskeletal: Denies: Neck Pain, Shoulder Pain Skin: Denies: Cyanosis, Jaundice, Mottled, Pallor Neurological: Reports: Confusion. Denies: Seizure Psychiatric: Reports: Confusion, Mood Lability. Denies: Agitation, Cravings, Suicidal Ideation, Homicidal Ideation - Patient Data Vitals - Most Recent: Last Vital Signs Temp 37.0 C 01/29/20 07:00 Pulse 55 L 01/29/20 07:00 Resp 18 01/29/20 07:00 BP 118/73 01/29/20 07:00 Pulse Ox 95 01/29/20 07:00 Weight - Most Recent: 83.234 kg I&O - Last 24 Hours: Intake & Output 01/28/20 01/29/20 01/29/20 22:59 06:59 14:59 Intake Total 660 350 Output Total 2200 500 Balance -1540 -150 Lab Results Last 24 Hours: Laboratory Results - last 24 hr 01/28/20 Range/Units 05:25 TSH 3rd Generation 2.87 (0.36-3.74) uIU/mL Med Orders - Current: Current Medications Albuterol/Ipratropium (Duoneb 3.0-0.5 Mg/3 Ml) 3 ml NEB Q4HRRT PRN PRN Reason: Shortness Of Breath/wheezing Diphenhydramine HCl (Benadryl) 25 mg IM Q4H PRN PRN Reason: Agitation Donepezil HCl (Aricept) 10 mg PO BEDTIME [facility] Last Admin: 01/28/20 21:11 Dose: 10 mg Enoxaparin Sodium (Lovenox) 40 mg SUBCUT Q24H [facility] Last Admin: 01/28/20 17:37 Dose: 40 mg Haloperidol Lactate (Haldol) 5 mg IM Q6H PRN PRN Reason: Agitation Lorazepam (Ativan) 2 mg IM Q4H PRN PRN Reason: Agitation Quetiapine Fumarate (Seroquel) 100 mg PO BEDTIME [facility] Last Admin: 01/28/20 21:11 Dose: 100 mg Quetiapine Fumarate (Seroquel) 50 mg PO DAILY [facility] Last Admin: 01/29/20 08:13 Dose: 50 mg Discontinued Medications Olanzapine (Zyprexa Zydis) 10 mg PO ONETIME ONE Stop: 01/27/20 14:31 Last Admin: 01/27/20 15:02 Dose: 10 mg Olanzapine (Zyprexa) 5 mg IM Q6H PRN PRN Reason: Agitation Quetiapine Fumarate (Seroquel) 25 mg PO BID [facility] Sterile Water (Sterile Water For Injection) 1.2 ml INJECT ONETIME ONE Stop: 01/27/20 16:17 Last Admin: 01/27/20 17:07 Dose: 1.2 ml Ziprasidone (Geodon) 20 mg IM ONETIME ONE Stop: 01/27/20 16:17 Last Admin: 01/27/20 17:06 Dose: 20 mg - Exam General: Alert, Cooperative, No Acute Distress Neck: Supple Lungs: Clear to Auscultation Cardiovascular: Regular Rate, Regular Rhythm GI/Abdominal Exam: Normal Bowel Sounds, Soft, Non-Tender Extremities: Normal Inspection, Normal Range of Motion Peripheral Pulses: 3+: Dorsalis Pedis (L), Dorsalis Pedis (R) Neurological: No New Focal Deficit, Normal Gait, Normal Speech, Normal Tone Sepsis Event Note - Evaluation Sepsis Screening Result: No Definite Risk - Focused Exam Vital Signs: Vital Signs Temp Pulse Pulse Resp BP Pulse Ox 01/29/20 07:00 37.0 C 55 L 18 118/73 95 01/29/20 03:30 36.6 C 45 L 47 L 17 119/70 95 01/28/20 23:41 36.6 C 53 L 18 125/75 98 Date Exam was Performed: 01/29/20 Time Exam was Performed: 10:57 - Problem List & Annotations (1) Altered mental state SNOMED Code(s): 919189491 Code(s): R41.82 - ALTERED MENTAL STATUS, UNSPECIFIED Status: Acute Current Visit: Yes (2) Fronto-temporal dementia SNOMED Code(s): 304417614 Code(s): G31.09 - OTHER FRONTOTEMPORAL DEMENTIA; F02.80 - DEMENTIA IN OTH DISEASES CLASSD ELSWHR W/O BEHAVRL DISTURB Status: Acute Current Visit: Yes (3) Medication noncompliance due to cognitive impairment SNOMED Code(s): 976566688, 509281633 Code(s): Z91.14 - PATIENT'S OTHER NONCOMPLIANCE WITH MEDICATION REGIMEN Status: Acute Current Visit: No - Problem List Review Problem List Initiated/Reviewed/Updated: Yes - My Orders Last 24 Hours: My Active Orders 01/28/20 11:00 QUEtiapine [SEROquel] 50 mg PO DAILY 01/28/20 11:50 Admission Status [Patient Status] [ADT] Routine 01/28/20 12:03 Telemetry Monitoring [Cardiac Monitoring] [RC] Q8H - Plan Plan:: 69 y/o M admitted for AMS Work up didn't showed any metabolic cause CT scan noted, 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
[2020-01-29] MEDS: Enoxaparin 40 MG/0.4 ML Syringe SUBCUT SCH (16:51)
[2020-01-29] MEDS: QUEtiapine 100 MG Tab PO SCH (20:32)
[2020-01-29] MEDS: Donepezil 10 MG Tab PO SCH (20:32)
--- NOTE | 2020-01-30 10:21 | CONS ---
DATE OF CONSULTATION: 01/28/2020 DATE OF : 1950 PRIMARY CARE PHYSICIAN: Steffanie Murphy MD Site where the services were provided are [facility] in [place], [place]. Site where the services are provided from, our offices in [facility]. Length of service for this 60-minute inpatient telemedicine event is 60 minutes. IDENTIFICATION: The patient is a 69-year-old male who was admitted to the inpatient Med/Surg unit at [facility] in [place], [place]. He is seen for psychiatric consultation per the request of staff attending, Dr. Arenas, and her treatment team. CHIEF COMPLAINT: "The forest manager brought me up." HISTORY OF PRESENT ILLNESS: The patient is a 69-year-old male who had been admitted earlier in the week and then subsequently discharged and is readmitted now on January 27, 2020, after he had been acting erratically and "walking in the traffic," according to staff. The patient himself is stating that he has "just a lot of anxiety," and he states that he gets really worried and paranoid that he may be getting poisoned. He states that he has been having problems with his memory "for the last year or 2," and he has a hard time finding words and it is very frustrating for him. He states "I just can't think of anything to say," even though he wants to say something. At this point in time, the patient's who was not present for the interview has told staff that she does not feel that the patient is safe to go home. The patient is being treated with some Aricept for possible dementia and there is a report that he has gotten a diagnosis of frontotemporal dementia from his neurologist. On interview, he is alert and oriented x2 to name and place, but not to date, and also when he is asked his age, he states that he is 89 years old. He does deny being suicidal or homicidal. Denies any illicit substance use or excessive alcohol is complicating his clinical picture. MEDICATIONS: At the time of admission: 1. Seroquel. 2. Lexapro. 3. Aricept. 4. Omeprazole. 5. Macrobid. ALLERGIES: No known drug allergies. PAST MEDICAL HISTORY: 1. History of GERD. 2. History of possible UTI, currently being treated. REVIEW OF SYSTEMS: Aside from GI and genitourinary, all other major organ systems are negative at this point in time for acute difficulties or complications. FAMILY PSYCHIATRIC AND CD HISTORY: None reported. PAST PSYCHIATRIC AND CD HISTORY: Essentially negative per staff report. The patient is not able to answer the majority of questions as he is struggling with thought blocking when he is questioned. He does say he is a nontobacco user. SOCIAL HISTORY: The patient was born and raised in [place], [place]. He has been x2. He is currently living in [place] with his . 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 MENTAL STATUS EXAM: The patient is a 69-year-old white male, in no apparent distress. Speech is regular rate and rhythm. Attention is cognitively oriented x2 to person and place, but not to date and he does not know his age, although he is able to state his actual date of . Psychomotor activities within normal limits. There is no abnormal motor movements or tics observed. Gait and station are not observed as the patient is seated during the course of the interview. Mood is frustrated. Affect consistent with stated mood. Frustrated appearing and also guarded, but cooperative overall and able to be redirected as needed when patient becomes too preoccupied with trying to answer questions. Thought content is significant for paranoid themes involving being poisoned. Thought processes are significant for thought blocking. There are no acute manic symptoms and loose associations evident. Judgment and insight do appear impaired secondary to the patient's cognitive deficit. Motivation for help appears fair. VITALS ON ADMISSION: 133/71, 45, 18, 96.8 degrees. IMPRESSION: Vidalia I: 1. Psychosis, not otherwise specified, F29. 2. Dementia, not otherwise specified, F03.90. 3. Depression, not otherwise specified, F32.9. 4. Anxiety disorder, not otherwise specified, F41.9. 5. Rule out pseudodementia. Vidalia II: None. Vidalia III: 1. Gastroesophageal reflux disease. 2. Urinary tract infection. 3. Possible diagnosis of frontotemporal dementia per staff report. Vidalia IV: Severe. Vidalia V: 35. PLAN: 1. Increase patient's Seroquel which was started at 100 mg at bedtime, to 50 in the morning, 100 mg at bedtime to help with clarity of thought and elimination of paranoid and psychotic symptoms as well as for sleep initiation and maintenance of anxiety reduction. 2. Recommend that when patient is medically stabilized that he be placed in geropsychiatric unit and memory care unit for further management of his cognitive decline. 3. Would recommend that primary treatment team get Social Work involved in the placement process as this patient does not appear safe to be discharged back to the community in his present compromised clinical condition from a psychiatric standpoint. 4. Other medications are dosed and prescribed by the patient's primary inpatient care treatment team and neurology treatment team. 5. We will continue to follow up with the patient on as needed basis while he remains on the inpatient Med/Surg unit at [facility]. 6. We will follow the patient sooner if there are any complications in the interim. 7. Crisis plan is in place. WYATT / ROSA ELENA /[id number]
--- NOTE | 2020-01-30 11:40 | PCM.PN ---
- General Info Date of Service: 01/30/20 Admission Dx/Problem (Free Text): Admission Diagnosis/Problem Admission Diagnosis/Problem Altered mental status Subjective Update: Patient seen and examined at bedside, no acute distress, resting comfortably, states he has one episode of loose stools, no fever, chills, N/V - Review of Systems General: Denies: Fever, Weakness, Fatigue Pulmonary: Denies: Shortness of Breath, Pleuritic Chest Pain Cardiovascular: Denies: Chest Pain, Palpitations, Dyspnea on Exertion, Lightheadedness Gastrointestinal: Reports: Diarrhea. Denies: Abdominal Pain, Constipation, Decreased Appetite, Difficulty Swallowing Genitourinary: Denies: Dysuria, Frequency, Burning Musculoskeletal: Denies: Neck Pain, Shoulder Pain, Arm Pain Skin: Denies: Cyanosis, Jaundice, Mottled Neurological: Reports: Confusion, Other (memory problems). Denies: Dizziness, Headache Psychiatric: Denies: Agitation, Cravings, Hallucinations, Suicidal Ideation, Homicidal Ideation - Patient Data Vitals - Most Recent: Last Vital Signs Temp 37.2 C 01/30/20 08:00 Pulse 56 L 01/30/20 08:00 Resp 18 01/30/20 08:00 BP 114/69 01/30/20 08:00 Pulse Ox 92 L 01/30/20 08:00 Weight - Most Recent: 83.234 kg I&O - Last 24 Hours: Intake & Output 01/29/20 01/30/20 01/30/20 22:59 06:59 14:59 Intake Total 360 Output Total 680 Balance -320 Med Orders - Current: Current Medications Albuterol/Ipratropium (Duoneb 3.0-0.5 Mg/3 Ml) 3 ml NEB Q4HRRT PRN PRN Reason: Shortness Of Breath/wheezing Diphenhydramine HCl (Benadryl) 25 mg IM Q4H PRN PRN Reason: Agitation Donepezil HCl (Aricept) 10 mg PO BEDTIME [facility] Last Admin: 01/29/20 20:32 Dose: 10 mg Enoxaparin Sodium (Lovenox) 40 mg SUBCUT Q24H [facility] Last Admin: 01/29/20 16:51 Dose: 40 mg Haloperidol Lactate (Haldol) 5 mg IM Q6H PRN PRN Reason: Agitation Lorazepam (Ativan) 2 mg IM Q4H PRN PRN Reason: Agitation Quetiapine Fumarate (Seroquel) 100 mg PO BEDTIME [facility] Last Admin: 01/29/20 20:32 Dose: 100 mg Quetiapine Fumarate (Seroquel) 50 mg PO DAILY [facility] Last Admin: 01/30/20 08:36 Dose: 50 mg Discontinued Medications Olanzapine (Zyprexa Zydis) 10 mg PO ONETIME ONE Stop: 01/27/20 14:31 Last Admin: 01/27/20 15:02 Dose: 10 mg Olanzapine (Zyprexa) 5 mg IM Q6H PRN PRN Reason: Agitation Quetiapine Fumarate (Seroquel) 25 mg PO BID [facility] Sterile Water (Sterile Water For Injection) 1.2 ml INJECT ONETIME ONE Stop: 01/27/20 16:17 Last Admin: 01/27/20 17:07 Dose: 1.2 ml Ziprasidone (Geodon) 20 mg IM ONETIME ONE Stop: 01/27/20 16:17 Last Admin: 01/27/20 17:06 Dose: 20 mg - Exam General: Alert, Oriented Neck: Supple, Trachea Midline Lungs: Clear to Auscultation, Normal Respiratory Effort Cardiovascular: Regular Rate, Regular Rhythm GI/Abdominal Exam: Normal Bowel Sounds, Soft, Non-Tender Back Exam: Normal Inspection, Full Range of Motion Extremities: Normal Inspection, Normal Range of Motion Neurological: No New Focal Deficit, Normal Gait Psy/Mental Status: Alert, Normal Affect, Normal Mood Sepsis Event Note - Evaluation Sepsis Screening Result: No Definite Risk - Focused Exam Vital Signs: Vital Signs Temp Pulse Resp BP Pulse Ox 01/30/20 08:00 37.2 C 56 L 18 114/69 92 L Date Exam was Performed: 02/05/20 Time Exam was Performed: 12:16 - Problem List & Annotations (1) Altered mental state SNOMED Code(s): 422724383 Code(s): R41.82 - ALTERED MENTAL STATUS, UNSPECIFIED Status: Acute Current Visit: Yes (2) Fronto-temporal dementia SNOMED Code(s): 470804471 Code(s): G31.09 - OTHER FRONTOTEMPORAL DEMENTIA; F02.80 - DEMENTIA IN OTH DISEASES CLASSD ELSWHR W/O BEHAVRL DISTURB Status: Acute Current Visit: Yes (3) Medication noncompliance due to cognitive impairment SNOMED Code(s): 162686692, 117107649 Code(s): Z91.14 - PATIENT'S OTHER NONCOMPLIANCE WITH MEDICATION REGIMEN Status: Acute Current Visit: No - Problem List Review Problem List Initiated/Reviewed/Updated: Yes - My Orders Last 24 Hours: My Active Orders 01/30/20 09:18 EKG 12 Lead [EKG Documentation Completion] [RC] ROUTINE - Plan Plan:: 69 y/o M admitted for AMS Work up didn't showed any metabolic cause CT scan noted, 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 Seroquel 100 mg bedtime, 50 mg in AM, agitation has improved, has been co- operative, requires no chemical sedation Haldol, Ativan, Benadryl PRN agitation Hold Lexapro Lovenox for DVT ppx Psych deemed patient is unsafe to go home as of now due to severely impaired cognition due to his fronto-temporal dementia I spoke to the psychiatrist at [facility], she said patient being a neuro patient isnt a candidate for a inpatient psych facility and recommended a memory care facility Neurology recs noted, patient needs to be placed in a Memory care unit due to worsening Dementia, will contact local facilities on Friday One episode of loose stools, will send stool studies if continues to have diarrhea. obtain Labs for AM
[2020-01-30] MEDS: Enoxaparin 40 MG/0.4 ML Syringe SUBCUT SCH (16:45)
[2020-01-30] MEDS: Donepezil 10 MG Tab PO SCH (20:58)
[2020-01-30] MEDS: QUEtiapine 100 MG Tab PO SCH (21:13)
[2020-01-31 06:49] LABS: BLOOD UREA NITROGEN,BUN 15 mg/dL (7.0-18.0); CARBON DIOXIDE,CO2 29.6 mmol/L (21.0-32.0); CHLORIDE,CL 105 mmol/L (98-107); GLUCOSE RANDOM 91 mg/dL (74-106); POTASSIUM,K 4.4 mmol/L (3.5-5.1); SODIUM,NA 141 mmol/L (136-148)
[2020-01-31] MEDS ORDERED: Polyethylene Glycol 3350 Powder 17 GM Packet PO PRN (09:13)
[2020-01-31] MEDS ORDERED: Bisacodyl 10 MG Supp RECTAL PRN (09:13)
[2020-01-31] MEDS: Docusate Sodium 100 MG Cap PO SCH (09:32)
--- NOTE | 2020-01-31 11:02 | PCM.PN ---
- General Info Date of Service: 01/31/20 Admission Dx/Problem (Free Text): Admission Diagnosis/Problem Admission Diagnosis/Problem Altered mental status Subjective Update: Reports doing well this morning. Denies pain or shortness of breath. Alert and oriented x 2. Functional Status: Reports: Pain Controlled, Tolerating Diet, Ambulating, Urinating - Review of Systems General: Reports: No Symptoms. Denies: Weakness, Fatigue, Malaise HEENT: Reports: No Symptoms. Denies: Headaches, Visual Changes Pulmonary: Reports: No Symptoms. Denies: Shortness of Breath Cardiovascular: Reports: No Symptoms. Denies: Chest Pain Gastrointestinal: Reports: No Symptoms. Denies: Abdominal Pain, Nausea, Vomiting Genitourinary: Reports: No Symptoms Musculoskeletal: Reports: No Symptoms Skin: Reports: No Symptoms Neurological: Reports: Confusion (intermittently) Psychiatric: Reports: No Symptoms - Patient Data Vitals - Most Recent: Last Vital Signs Temp 98.2 F 01/31/20 08:00 Pulse 62 01/31/20 08:00 Resp 18 01/31/20 08:00 BP 113/77 01/31/20 08:00 Pulse Ox 96 01/31/20 08:00 Weight - Most Recent: 83.234 kg I&O - Last 24 Hours: Intake & Output 01/30/20 01/31/20 01/31/20 22:59 06:59 14:59 Intake Total 400 Output Total 600 Balance -200 Lab Results Last 24 Hours: Laboratory Results - last 24 hr 01/31/20 01/31/20 Range/Units 06:10 06:10 WBC 5.46 (4.0-11.0) K/uL RBC 4.76 (4.50-5.90) M/uL Hgb 14.5 (13.0-17.0) g/dL Hct 44.0 (38.0-50.0) % MCV 92.4 (80.0-98.0) fL MCH 30.5 (27.0-32.0) pg MCHC 33.0 (31.0-37.0) g/dL RDW Std Deviation 45.6 (28.0-62.0) fl RDW Coeff of Nilay 13 (11.0-15.0) % Plt Count 241 (150-400) K/uL MPV 10.10 (7.40-12.00) fL Neut % (Auto) 48.2 (48.0-80.0) % Lymph % (Auto) 35.3 (16.0-40.0) % Boundary % (Auto) 13.2 (0.0-15.0) % Eos % (Auto) 2.9 (0.0-7.0) % Baso % (Auto) 0.4 (0.0-1.5) % Neut # (Auto) 2.6 (1.4-5.7) K/uL Lymph # (Auto) 1.9 (0.6-2.4) K/uL Boundary # (Auto) 0.7 (0.0-0.8) K/uL Eos # (Auto) 0.2 (0.0-0.7) K/uL Baso # (Auto) 0.0 (0.0-0.1) K/uL Nucleated RBC % 0.0 /100WBC Nucleated RBCs # 0 K/uL Sodium 141 (136-148) mmol/L Potassium 4.4 (3.5-5.1) mmol/L Chloride 105 (98-107) mmol/L Carbon Dioxide 29.6 (21.0-32.0) mmol/L BUN 15 (7.0-18.0) mg/dL Creatinine 1.1 (0.8-1.3) mg/dL Est Cr Clr Drug Dosing 66.55 mL/min Estimated GFR (MDRD) > 60.0 ml/min Glucose 91 (74-106) mg/dL Calcium 8.9 (8.5-10.1) mg/dL Phosphorus 3.0 (2.6-4.7) mg/dL Magnesium 2.2 (1.8-2.4) mg/dL Med Orders - Current: Current Medications Albuterol/Ipratropium (Duoneb 3.0-0.5 Mg/3 Ml) 3 ml NEB Q4HRRT PRN PRN Reason: Shortness Of Breath/wheezing Bisacodyl (Dulcolax) 10 mg RECTAL DAILY PRN PRN Reason: Constipation Diphenhydramine HCl (Benadryl) 25 mg IM Q4H PRN PRN Reason: Agitation Docusate Sodium (Colace) 100 mg PO DAILY [facility] Last Admin: 01/31/20 09:32 Dose: 100 mg Donepezil HCl (Aricept) 10 mg PO BEDTIME [facility] Last Admin: 01/30/20 20:58 Dose: 10 mg Enoxaparin Sodium (Lovenox) 40 mg SUBCUT Q24H [facility] Last Admin: 01/30/20 16:45 Dose: 40 mg Haloperidol Lactate (Haldol) 5 mg IM Q6H PRN PRN Reason: Agitation Lorazepam (Ativan) 2 mg IM Q4H PRN PRN Reason: Agitation Polyethylene Glycol (Miralax) 17 gm PO DAILY PRN PRN Reason: Constipation Quetiapine Fumarate (Seroquel) 100 mg PO BEDTIME [facility] Last Admin: 01/30/20 21:13 Dose: 100 mg Quetiapine Fumarate (Seroquel) 50 mg PO DAILY [facility] Last Admin: 01/31/20 08:28 Dose: 50 mg Discontinued Medications Olanzapine (Zyprexa Zydis) 10 mg PO ONETIME ONE Stop: 01/27/20 14:31 Last Admin: 01/27/20 15:02 Dose: 10 mg Olanzapine (Zyprexa) 5 mg IM Q6H PRN PRN Reason: Agitation Quetiapine Fumarate (Seroquel) 25 mg PO BID [facility] Sterile Water (Sterile Water For Injection) 1.2 ml INJECT ONETIME ONE Stop: 01/27/20 16:17 Last Admin: 01/27/20 17:07 Dose: 1.2 ml Ziprasidone (Geodon) 20 mg IM ONETIME ONE Stop: 01/27/20 16:17 Last Admin: 01/27/20 17:06 Dose: 20 mg - Exam General: Alert, Oriented (x2, reports age is 89 and year is 2020), Cooperative , No Acute Distress Lungs: Clear to Auscultation, Normal Respiratory Effort Cardiovascular: Regular Rate, Regular Rhythm GI/Abdominal Exam: Normal Bowel Sounds, Soft, Non-Tender Extremities: Normal Inspection, Normal Range of Motion, Non-Tender, No Pedal Edema Neurological: No New Focal Deficit Psy/Mental Status: Alert, Anxious (intermittent anxiety with tearfulness) Sepsis Event Note - Evaluation Sepsis Screening Result: No Definite Risk - Focused Exam Vital Signs: Vital Signs Temp Pulse Pulse Resp BP Pulse Ox 01/31/20 08:00 98.2 F 62 18 113/77 96 01/31/20 04:00 62 18 121/67 96 01/31/20 00:00 97.0 F 60 18 136/91 H 94 L Date Exam was Performed: 01/31/20 Time Exam was Performed: 10:57 - Problem List & Annotations (1) Agitation due to dementia SNOMED Code(s): 582109639 Code(s): F03.91 - UNSPECIFIED DEMENTIA WITH BEHAVIORAL DISTURBANCE Status: Acute Current Visit: Yes (2) Fronto-temporal dementia SNOMED Code(s): 664719556 Code(s): G31.09 - OTHER FRONTOTEMPORAL DEMENTIA; F02.80 - DEMENTIA IN OTH DISEASES CLASSD ELSWHR W/O BEHAVRL DISTURB Status: Acute Current Visit: Yes - Problem List Review Problem List Initiated/Reviewed/Updated: Yes - My Orders Last 24 Hours: My Active Orders 01/31/20 09:13 bisacodyL [Dulcolax] 10 mg RECTAL DAILY PRN polyethylene glycoL 3350 [MiraLAX] 17 gm PO DAILY PRN 01/31/20 09:14 May Shower [RC] ASDIRECTED 01/31/20 09:15 Docusate Sodium [Colace] 100 mg PO DAILY - Plan Plan:: This 69 year old male admitted with agitation due to dementia 1. Fronto-temporal dementia - Work up has not shown any metabolic cause for AMS - Continue Seroquel 100 mg bedtime, 50 mg in AM, agitation has improved, continues to be cooperative - Haldol, Ativan, Benadryl PRN agitation has not been needed during stay. - Dr Sharp, Psychiatry evaluated patient via telepysch, recommends memory care unit as patient is not in need of psychiatric stabilization. Dementia is related to neurological event, temporal infarct. - Dr Murphy, Neurologist knows patient from outpatient evaluation for same concerns.Evaluated patient and recommends memory care unit as episodes of agitation are becoming more frequent and his safety is a concern due to these as family is unable to care for him at home VTE prophylaxis: Lovenox Dispo: Pending placement, delinquency prevention social worker/case management consulted to facilitate this.
[2020-01-31] MEDS: Enoxaparin 40 MG/0.4 ML Syringe SUBCUT SCH (17:11)
--- NOTE | 2020-01-31 20:18 | CONS ---
DATE OF CONSULTATION: 01/31/2020 DATE OF : 1950 PRIMARY CARE PHYSICIAN: Steffanie Murphy MD ASSESSMENT: This patient is a 69-year-old male who was initially seen for psychiatric inpatient consultation on January 28, 2020. After receiving an update on the patient's clinical course over the weekend from the patient's staff attending, Dr. Arenas, it is the clinical opinion from a psychiatric standpoint that the patient be transitioned to a memory care structured unit for further care of his frontotemporal dementia process that he has been struggling with for some time now. It appears that the patient did respond well to the Seroquel therapy that was initiated and advanced from the time of his admission, and he does not appear to be presenting from primarily a psychiatric standpoint, does not require inpatient psychiatric hospitalization at this time as he has remained calm and cooperative on the unit through his stay with the Seroquel medication being administered. It appears for further care that placement in a long-term care structured memory unit would be optimal for this patient moving forward once it is deemed that he is medically stable. WYATT / ROSA ELENA /[id number]
[2020-01-31] MEDS: Donepezil 10 MG Tab PO SCH (21:46)
[2020-01-31] MEDS: QUEtiapine 100 MG Tab PO SCH (21:46)
[2020-02-01] MEDS: Docusate Sodium 100 MG Cap PO SCH (08:18)
--- NOTE | 2020-02-01 11:29 | PCM.PN ---
- General Info Date of Service: 02/01/20 Admission Dx/Problem (Free Text): Admission Diagnosis/Problem Admission Diagnosis/Problem Altered mental status Subjective Update: Feeling well this morning, no concerns today. No chest pain or SOB. Functional Status: Reports: Pain Controlled, Tolerating Diet, Ambulating, Urinating - Review of Systems Pulmonary: Reports: No Symptoms. Denies: Shortness of Breath Cardiovascular: Reports: No Symptoms. Denies: Chest Pain Gastrointestinal: Reports: No Symptoms. Denies: Abdominal Pain, Nausea, Vomiting Genitourinary: Reports: No Symptoms Skin: Reports: No Symptoms Neurological: Reports: Confusion (intermittent.) - Patient Data Vitals - Most Recent: Last Vital Signs Temp 97.9 F 02/01/20 08:00 Pulse 50 L 02/01/20 08:00 Resp 16 02/01/20 08:00 BP 129/83 02/01/20 08:00 Pulse Ox 96 02/01/20 08:00 Weight - Most Recent: 83.234 kg I&O - Last 24 Hours: Intake & Output 01/31/20 02/01/20 02/01/20 22:59 06:59 14:59 Intake Total 800 100 Output Total 150 Balance 800 -50 Med Orders - Current: Current Medications Albuterol/Ipratropium (Duoneb 3.0-0.5 Mg/3 Ml) 3 ml NEB Q4HRRT PRN PRN Reason: Shortness Of Breath/wheezing Bisacodyl (Dulcolax) 10 mg RECTAL DAILY PRN PRN Reason: Constipation Diphenhydramine HCl (Benadryl) 25 mg IM Q4H PRN PRN Reason: Agitation Docusate Sodium (Colace) 100 mg PO DAILY [facility] Last Admin: 02/01/20 08:18 Dose: 100 mg Donepezil HCl (Aricept) 10 mg PO BEDTIME [facility] Last Admin: 01/31/20 21:46 Dose: 10 mg Enoxaparin Sodium (Lovenox) 40 mg SUBCUT Q24H [facility] Last Admin: 01/31/20 17:11 Dose: 40 mg Haloperidol Lactate (Haldol) 5 mg IM Q6H PRN PRN Reason: Agitation Lorazepam (Ativan) 2 mg IM Q4H PRN PRN Reason: Agitation Polyethylene Glycol (Miralax) 17 gm PO DAILY PRN PRN Reason: Constipation Quetiapine Fumarate (Seroquel) 100 mg PO BEDTIME [facility] Last Admin: 01/31/20 21:46 Dose: 100 mg Quetiapine Fumarate (Seroquel) 50 mg PO DAILY [facility] Last Admin: 02/01/20 08:18 Dose: 50 mg Discontinued Medications Olanzapine (Zyprexa Zydis) 10 mg PO ONETIME ONE Stop: 01/27/20 14:31 Last Admin: 01/27/20 15:02 Dose: 10 mg Olanzapine (Zyprexa) 5 mg IM Q6H PRN PRN Reason: Agitation Quetiapine Fumarate (Seroquel) 25 mg PO BID [facility] Sterile Water (Sterile Water For Injection) 1.2 ml INJECT ONETIME ONE Stop: 01/27/20 16:17 Last Admin: 01/27/20 17:07 Dose: 1.2 ml Ziprasidone (Geodon) 20 mg IM ONETIME ONE Stop: 01/27/20 16:17 Last Admin: 01/27/20 17:06 Dose: 20 mg - Exam General: Alert, Cooperative, No Acute Distress. No: Oriented (x2) Lungs: Clear to Auscultation, Normal Respiratory Effort Cardiovascular: Regular Rate, Regular Rhythm GI/Abdominal Exam: Normal Bowel Sounds, Soft, Non-Tender Extremities: Normal Inspection, Normal Range of Motion, Non-Tender, No Pedal Edema Neurological: No New Focal Deficit Psy/Mental Status: Alert, Normal Affect, Normal Mood. No: Anxious, Agitated Sepsis Event Note - Evaluation Sepsis Screening Result: No Definite Risk - Focused Exam Vital Signs: Vital Signs Temp Pulse Resp BP Pulse Ox 02/01/20 08:00 97.9 F 50 L 16 129/83 96 02/01/20 04:43 98.6 F 54 L 18 156/79 H 96 Date Exam was Performed: 02/01/20 Time Exam was Performed: 12:43 - Problem List & Annotations (1) Agitation due to dementia SNOMED Code(s): 806518145 Code(s): F03.91 - UNSPECIFIED DEMENTIA WITH BEHAVIORAL DISTURBANCE Status: Acute Current Visit: Yes (2) Fronto-temporal dementia SNOMED Code(s): 583924167 Code(s): G31.09 - OTHER FRONTOTEMPORAL DEMENTIA; F02.80 - DEMENTIA IN OTH DISEASES CLASSD ELSWHR W/O BEHAVRL DISTURB Status: Acute Current Visit: Yes - Problem List Review Problem List Initiated/Reviewed/Updated: Yes - My Orders Last 24 Hours: My Active Orders 02/01/20 10:19 Audit Mgr Discontinue [Cardiac Monitoring Discontinue] [RC] Click to Edit - Plan Plan:: This 69 year old male admitted with agitation due to dementia 1. Fronto-temporal dementia - Work up has not shown any metabolic cause for AMS - Continue Seroquel 100 mg bedtime, 50 mg in AM, continues to be cooperative - Haldol, Ativan, Benadryl PRN agitation has not been needed during stay. - Dr Sharp, Psychiatry evaluated patient via telepysch, recommends memory care unit as patient is not in need of psychiatric stabilization. Dementia is related to neurological event, temporal infarct. - Dr Murphy, Neurologist knows patient from outpatient evaluation for same concerns.Evaluated patient and recommends memory care unit as episodes of agitation are becoming more frequent and his safety is a concern due to these as family is unable to care for him at home VTE prophylaxis: Lovenox Dispo: Pending placement, social work specialist/case management consulted to facilitate this.
--- NOTE | 2020-02-01 16:08 | PCM.CONSN ---
- General Info Date of Service: 02/01/20 Subjective Update: When asked how he was doing, he talked about his money and property being stolen , and he is waiting on river captain. He is not sleeping well. When asked about mood he again spoke about concerns about his money. - Patient Data Vitals - Most Recent: Last Vital Signs Temp 36.8 C 02/01/20 12:00 Pulse 55 L 02/01/20 12:00 Resp 20 02/01/20 12:00 BP 146/82 H 02/01/20 12:00 Pulse Ox 95 02/01/20 12:00 Weight - Most Recent: 83.234 kg I&O - Last 24 Hours: Intake & Output 02/01/20 02/01/20 02/01/20 06:59 14:59 22:59 Intake Total 100 Output Total 150 Balance -50 Med Orders - Current: Current Medications Albuterol/Ipratropium (Duoneb 3.0-0.5 Mg/3 Ml) 3 ml NEB Q4HRRT PRN PRN Reason: Shortness Of Breath/wheezing Bisacodyl (Dulcolax) 10 mg RECTAL DAILY PRN PRN Reason: Constipation Diphenhydramine HCl (Benadryl) 25 mg IM Q4H PRN PRN Reason: Agitation Docusate Sodium (Colace) 100 mg PO DAILY [facility] Last Admin: 02/01/20 08:18 Dose: 100 mg Donepezil HCl (Aricept) 10 mg PO BEDTIME [facility] Last Admin: 01/31/20 21:46 Dose: 10 mg Enoxaparin Sodium (Lovenox) 40 mg SUBCUT Q24H [facility] Last Admin: 01/31/20 17:11 Dose: 40 mg Haloperidol Lactate (Haldol) 5 mg IM Q6H PRN PRN Reason: Agitation Lorazepam (Ativan) 2 mg IM Q4H PRN PRN Reason: Agitation Polyethylene Glycol (Miralax) 17 gm PO DAILY PRN PRN Reason: Constipation Quetiapine Fumarate (Seroquel) 100 mg PO BEDTIME [facility] Last Admin: 01/31/20 21:46 Dose: 100 mg Quetiapine Fumarate (Seroquel) 50 mg PO DAILY [facility] Last Admin: 02/01/20 08:18 Dose: 50 mg Discontinued Medications Olanzapine (Zyprexa Zydis) 10 mg PO ONETIME ONE Stop: 05/28/20 14:31 Last Admin: 01/27/20 15:02 Dose: 10 mg Olanzapine (Zyprexa) 5 mg IM Q6H PRN PRN Reason: Agitation Quetiapine Fumarate (Seroquel) 25 mg PO BID ANN Sterile Water (Sterile Water For Injection) 1.2 ml INJECT ONETIME ONE Stop: 01/27/20 16:17 Last Admin: 01/27/20 17:07 Dose: 1.2 ml Ziprasidone (Geodon) 20 mg IM ONETIME ONE Stop: 01/27/20 16:17 Last Admin: 01/27/20 17:06 Dose: 20 mg Comments:: General: He was initially sitting quietly on the side of his bed when I came into his room. Mental status: Labile during questions. He was initially animated talking about money being taken and something about waiting for the river captain. He has word finding difficulty and makes paraphesic errors. He then appeared angry and pointed at me saying "it's because of what you are doing" but soon after I started to try to reassure him he became tearful saying that "you come and make me feel better ... wonderful person". As I was leaving, he smiled and wished me a good rest of my day Sepsis Event Note - Evaluation Sepsis Screening Result: No Definite Risk - Focused Exam Vital Signs: Vital Signs Temp Pulse Pulse Resp BP Pulse Ox 02/01/20 12:00 36.8 C 55 L 20 146/82 H 95 02/01/20 08:00 36.6 C 50 L 16 129/83 96 02/01/20 04:43 37.0 C 54 L 18 156/79 H 96 Date Exam was Performed: 02/01/20 Time Exam was Performed: 16:00 Consult PN Assessment/Plan Procedures: Procedures ASSAY OF AMYLASE (01/08/19) ASSAY OF LIPASE (01/08/19) ASSAY OF TROPONIN QUANT (01/26/20) ASSAY THYROID STIM HORMONE (02/24/19) CARDIOVASCULAR STRESS TEST (12/06/16) COMPLETE CBC W/AUTO DIFF WBC (01/26/20) COMPREHEN METABOLIC PANEL (01/26/20) CT ABD & PELV 1/> REGNS (11/19/16) CT HEAD/BRAIN W/O DYE (03/22/17) CT THORAX W/O & W/DYE (11/19/16) DIAGNOSTIC COLONOSCOPY (12/19/16) EGD BIOPSY SINGLE/MULTIPLE (12/19/16) ELECTROCARDIOGRAM TRACING (01/26/20) EMERGENCY DEPT VISIT (01/26/20) EMERGENCY DEPT VISIT (12/01/18) HELICOBACTER PYLORI ANTIBODY (01/08/19) HT MUSCLE IMAGE SPECT MULT (12/06/16) OFFICE/OUTPATIENT VISIT NEW (02/24/19) ROUTINE VENIPUNCTURE (01/26/20) THER/PROPH/DIAG INJ IV PUSH (01/08/19) TX/PRO/DX INJ NEW DRUG ADDON (01/08/19) URINALYSIS AUTO W/O SCOPE (01/08/19) URINALYSIS AUTO W/SCOPE (01/26/20) VITAMIN B-12 (02/24/19) X-RAY EXAM CHEST 1 VIEW (01/26/20) (1) Agitation due to dementia SNOMED Code(s): 877341818 Code(s): F03.91 - UNSPECIFIED DEMENTIA WITH BEHAVIORAL DISTURBANCE Current Visit: Yes (2) Fronto-temporal dementia SNOMED Code(s): 119666617 Code(s): G31.09 - OTHER FRONTOTEMPORAL DEMENTIA; F02.80 - DEMENTIA IN OTH DISEASES CLASSD ELSWHR W/O BEHAVRL DISTURB Current Visit: Yes Assessment:: 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 He has psychosis associated with dementia. Although he doing fairly well in the hospital, the dementia has progressed to the point that he is a danger to himself, and he does not respond to his 's direction/reassurance/guidance. I recommend memory care unit Problem List Initiated/Reviewed/Updated: Yes
[2020-02-01] MEDS: Enoxaparin 40 MG/0.4 ML Syringe SUBCUT SCH (16:46)
[2020-02-01] MEDS: QUEtiapine 100 MG Tab PO SCH (22:05)
[2020-02-01] MEDS: Donepezil 10 MG Tab PO SCH (22:05)
--- NOTE | 2020-02-02 08:56 | PCM.PN ---
- General Info Date of Service: 02/02/20 Admission Dx/Problem (Free Text): Admission Diagnosis/Problem Admission Diagnosis/Problem Altered mental status Subjective Update: Resting this morning. Earlier this morning he was startled awake by bed alarm and was confused and agitated after this. He was given Haldol and Ativan. - Review of Systems HEENT: Reports: No Symptoms. Denies: Headaches, Sore Throat, Visual Changes Pulmonary: Reports: No Symptoms. Denies: Shortness of Breath Cardiovascular: Reports: No Symptoms. Denies: Chest Pain Gastrointestinal: Reports: No Symptoms. Denies: Abdominal Pain, Nausea, Vomiting Genitourinary: Reports: No Symptoms. Denies: Dysuria, Frequency, Burning Musculoskeletal: Reports: No Symptoms Skin: Reports: No Symptoms Neurological: Reports: Confusion Psychiatric: Reports: No Symptoms - Patient Data Vitals - Most Recent: Last Vital Signs Temp 97.9 F 02/02/20 00:00 Pulse 86 02/02/20 00:00 Resp 20 02/02/20 00:00 BP 111/78 02/02/20 00:00 Pulse Ox 97 02/02/20 00:00 Weight - Most Recent: 83.234 kg I&O - Last 24 Hours: Intake & Output 02/01/20 02/02/20 02/02/20 22:59 06:59 14:59 Intake Total 320 Output Total 900 Balance -580 Med Orders - Current: Current Medications Albuterol/Ipratropium (Duoneb 3.0-0.5 Mg/3 Ml) 3 ml NEB Q4HRRT PRN PRN Reason: Shortness Of Breath/wheezing Bisacodyl (Dulcolax) 10 mg RECTAL DAILY PRN PRN Reason: Constipation Diphenhydramine HCl (Benadryl) 25 mg IM Q4H PRN PRN Reason: Agitation Docusate Sodium (Colace) 100 mg PO DAILY [facility] Last Admin: 02/01/20 08:18 Dose: 100 mg Donepezil HCl (Aricept) 10 mg PO BEDTIME [facility] Last Admin: 02/01/20 22:05 Dose: 10 mg Enoxaparin Sodium (Lovenox) 40 mg SUBCUT Q24H [facility] Last Admin: 02/01/20 16:46 Dose: 40 mg Haloperidol Lactate (Haldol) 5 mg IM Q6H PRN PRN Reason: Agitation Last Admin: 02/02/20 05:59 Dose: 5 mg Lorazepam (Ativan) 2 mg IM Q4H PRN PRN Reason: Agitation Last Admin: 02/02/20 06:01 Dose: 2 mg Polyethylene Glycol (Miralax) 17 gm PO DAILY PRN PRN Reason: Constipation Quetiapine Fumarate (Seroquel) 100 mg PO BEDTIME [facility] Last Admin: 02/01/20 22:05 Dose: 100 mg Quetiapine Fumarate (Seroquel) 50 mg PO DAILY [facility] Last Admin: 02/01/20 08:18 Dose: 50 mg Discontinued Medications Olanzapine (Zyprexa Zydis) 10 mg PO ONETIME ONE Stop: 01/27/20 14:31 Last Admin: 01/27/20 15:02 Dose: 10 mg Olanzapine (Zyprexa) 5 mg IM Q6H PRN PRN Reason: Agitation Quetiapine Fumarate (Seroquel) 25 mg PO BID [facility] Sterile Water (Sterile Water For Injection) 1.2 ml INJECT ONETIME ONE Stop: 01/27/20 16:17 Last Admin: 01/27/20 17:07 Dose: 1.2 ml Ziprasidone (Geodon) 20 mg IM ONETIME ONE Stop: 01/27/20 16:17 Last Admin: 01/27/20 17:06 Dose: 20 mg - Exam General: Alert, Cooperative, No Acute Distress. No: Oriented Lungs: Clear to Auscultation, Normal Respiratory Effort Cardiovascular: Regular Rate, Regular Rhythm GI/Abdominal Exam: Normal Bowel Sounds, Soft, Non-Tender Extremities: Normal Inspection, Normal Range of Motion, Non-Tender, No Pedal Edema Neurological: No New Focal Deficit Psy/Mental Status: Alert, Normal Affect, Normal Mood Sepsis Event Note - Evaluation Sepsis Screening Result: No Definite Risk - Focused Exam Vital Signs: Vital Signs Temp Pulse Resp BP Pulse Ox 02/02/20 00:00 97.9 F 86 20 111/78 97 Date Exam was Performed: 02/02/20 Time Exam was Performed: 08:53 - Problem List & Annotations (1) Agitation due to dementia SNOMED Code(s): 015933038 Code(s): F03.91 - UNSPECIFIED DEMENTIA WITH BEHAVIORAL DISTURBANCE Status: Acute Current Visit: Yes (2) Fronto-temporal dementia SNOMED Code(s): 895840381 Code(s): G31.09 - OTHER FRONTOTEMPORAL DEMENTIA; F02.80 - DEMENTIA IN OTH DISEASES CLASSD ELSWHR W/O BEHAVRL DISTURB Status: Acute Current Visit: Yes - Problem List Review Problem List Initiated/Reviewed/Updated: Yes - Plan Plan:: This 69 year old male admitted with agitation due to dementia 1. Fronto-temporal dementia - Work up has not shown any metabolic cause for AMS - Increase Seroquel to 150 mg bedtime, continue 50 mg in AM, had agitation when he was startled this morning. 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 - Dr Murphy, Neurologist knows patient from outpatient evaluation for same concerns.Evaluated patient and recommends memory care unit as episodes of agitation are becoming more frequent and his safety is a concern due to these as family is unable to care for him at home VTE prophylaxis: Lovenox Dispo: Pending placement, social insurance adviser/case management consulted to facilitate this.
[2020-02-02] MEDS: Docusate Sodium 100 MG Cap PO SCH (09:45)
[2020-02-02] MEDS: Enoxaparin 40 MG/0.4 ML Syringe SUBCUT SCH (16:13)
[2020-02-02] MEDS: Donepezil 10 MG Tab PO SCH (20:40)
--- NOTE | 2020-02-03 08:47 | PCM.PN ---
- General Info Date of Service: 02/03/20 Admission Dx/Problem (Free Text): Admission Diagnosis/Problem Admission Diagnosis/Problem Altered mental status Subjective Update: Doing well this morning. Denies chest pain or SOB. Appears calm. No agitation noted during talk. Alert and oriented x 2. Functional Status: Reports: Pain Controlled, Tolerating Diet, Ambulating, Urinating - Review of Systems General: Reports: No Symptoms HEENT: Reports: No Symptoms Pulmonary: Reports: No Symptoms. Denies: Shortness of Breath Cardiovascular: Reports: No Symptoms. Denies: Chest Pain Gastrointestinal: Reports: No Symptoms Genitourinary: Reports: No Symptoms Musculoskeletal: Reports: No Symptoms Neurological: Reports: Confusion Psychiatric: Reports: No Symptoms - Patient Data Vitals - Most Recent: Last Vital Signs Temp 97.6 F 02/03/20 08:00 Pulse 54 L 02/03/20 08:00 Resp 17 02/03/20 08:00 BP 122/76 02/03/20 08:00 Pulse Ox 94 L 02/03/20 08:00 Weight - Most Recent: 83.234 kg I&O - Last 24 Hours: Intake & Output 02/02/20 02/03/20 02/03/20 22:59 06:59 14:59 Intake Total 400 520 Output Total 550 Balance -150 520 Med Orders - Current: Current Medications Albuterol/Ipratropium (Duoneb 3.0-0.5 Mg/3 Ml) 3 ml NEB Q4HRRT PRN PRN Reason: Shortness Of Breath/wheezing Bisacodyl (Dulcolax) 10 mg RECTAL DAILY PRN PRN Reason: Constipation Diphenhydramine HCl (Benadryl) 25 mg IM Q4H PRN PRN Reason: Agitation Docusate Sodium (Colace) 100 mg PO DAILY [facility] Last Admin: 02/02/20 09:45 Dose: 100 mg Donepezil HCl (Aricept) 10 mg PO BEDTIME [facility] Last Admin: 02/02/20 20:40 Dose: 10 mg Enoxaparin Sodium (Lovenox) 40 mg SUBCUT Q24H [facility] Last Admin: 02/02/20 16:13 Dose: 40 mg Haloperidol Lactate (Haldol) 5 mg IM Q6H PRN PRN Reason: Agitation Last Admin: 02/02/20 05:59 Dose: 5 mg Lorazepam (Ativan) 2 mg IM Q4H PRN PRN Reason: Agitation Last Admin: 02/02/20 06:01 Dose: 2 mg Polyethylene Glycol (Miralax) 17 gm PO DAILY PRN PRN Reason: Constipation Quetiapine Fumarate (Seroquel) 50 mg PO DAILY [facility] Last Admin: 02/02/20 09:45 Dose: 50 mg Quetiapine Fumarate (Seroquel) 150 mg PO BEDTIME [facility] Last Admin: 02/02/20 20:40 Dose: 150 mg Discontinued Medications Olanzapine (Zyprexa Zydis) 10 mg PO ONETIME ONE Stop: 01/27/20 14:31 Last Admin: 01/27/20 15:02 Dose: 10 mg Olanzapine (Zyprexa) 5 mg IM Q6H PRN PRN Reason: Agitation Quetiapine Fumarate (Seroquel) 25 mg PO BID [facility] Quetiapine Fumarate (Seroquel) 100 mg PO BEDTIME [facility] Last Admin: 02/01/20 22:05 Dose: 100 mg Sterile Water (Sterile Water For Injection) 1.2 ml INJECT ONETIME ONE Stop: 01/27/20 16:17 Last Admin: 01/27/20 17:07 Dose: 1.2 ml Ziprasidone (Geodon) 20 mg IM ONETIME ONE Stop: 01/27/20 16:17 Last Admin: 01/27/20 17:06 Dose: 20 mg - Exam General: Alert, Oriented (x2), Cooperative, No Acute Distress Lungs: Clear to Auscultation, Normal Respiratory Effort Cardiovascular: Regular Rate, Regular Rhythm GI/Abdominal Exam: Normal Bowel Sounds, Soft, Non-Tender Extremities: Normal Inspection, Normal Range of Motion, Non-Tender, No Pedal Edema Neurological: No New Focal Deficit Psy/Mental Status: Alert, Normal Affect, Normal Mood. No: Anxious, Agitated Sepsis Event Note - Evaluation Sepsis Screening Result: No Definite Risk - Focused Exam Vital Signs: Vital Signs Temp Temp Pulse Resp BP Pulse Ox 02/03/20 08:00 97.6 F 54 L 17 122/76 94 L 02/03/20 04:00 97.5 F 69 18 112/76 93 L 02/03/20 00:00 97.1 F 61 20 128/72 96 Date Exam was Performed: 02/03/20 Time Exam was Performed: 08:45 - Problem List & Annotations (1) Agitation due to dementia SNOMED Code(s): 470012132 Code(s): F03.91 - UNSPECIFIED DEMENTIA WITH BEHAVIORAL DISTURBANCE Status: Acute Current Visit: Yes (2) Fronto-temporal dementia SNOMED Code(s): 039314506 Code(s): G31.09 - OTHER FRONTOTEMPORAL DEMENTIA; F02.80 - DEMENTIA IN OTH DISEASES CLASSD ELSWHR W/O BEHAVRL DISTURB Status: Acute Current Visit: Yes - Problem List Review Problem List Initiated/Reviewed/Updated: Yes - My Orders Last 24 Hours: My Active Orders 02/02/20 21:00 QUEtiapine [SEROquel] 150 mg PO BEDTIME - Plan Plan:: This 69 year old male admitted with agitation due to dementia 1. Fronto-temporal dementia - Continue Seroquel 150 mg at bedtime and 50 mg in AM - Haldol, Ativan, Benadryl PRN agitation - Memory care unit recommended by both Dr Sharp psychiatry and Dr Murphy Neurology. VTE prophylaxis: Lovenox Dispo: Pending placement, long term care social worker/case management consulted to facilitate this.
[2020-02-03] MEDS: Docusate Sodium 100 MG Cap PO SCH (09:14)
[2020-02-03] MEDS ORDERED: Calcium Carbonate 500 MG Tab.Chew PO PRN (11:23)
[2020-02-03] MEDS: Enoxaparin 40 MG/0.4 ML Syringe SUBCUT SCH (16:22)
[2020-02-03] MEDS: Donepezil 10 MG Tab PO SCH (21:39)
[2020-02-04] MEDS: Omeprazole 20 MG Cap.CR PO SCH (06:32)
--- NOTE | 2020-02-04 07:55 | PCM.PN ---
- General Info Date of Service: 02/04/20 Admission Dx/Problem (Free Text): Admission Diagnosis/Problem Admission Diagnosis/Problem Altered mental status Subjective Update: Doing well this morning. Denies chest pain or SOB. Appears calm. Alert and oriented to place and person. Reports he is [age] years or and the year is [birth year] something. Functional Status: Reports: Pain Controlled, Tolerating Diet, Ambulating, Urinating - Review of Systems HEENT: Reports: No Symptoms. Denies: Headaches, Visual Changes Pulmonary: Reports: No Symptoms. Denies: Shortness of Breath Cardiovascular: Reports: No Symptoms. Denies: Chest Pain Gastrointestinal: Reports: No Symptoms. Denies: Abdominal Pain, Nausea, Vomiting Genitourinary: Reports: No Symptoms. Denies: Dysuria, Frequency Musculoskeletal: Reports: No Symptoms Neurological: Reports: Confusion (feels his brain isn't working like it should) . Denies: Headache - Patient Data Vitals - Most Recent: Last Vital Signs Temp 96.9 F 02/04/20 07:37 Pulse 60 02/04/20 07:37 Resp 17 02/04/20 07:37 BP 121/73 02/04/20 07:37 Pulse Ox 97 02/04/20 07:37 Weight - Most Recent: 83.234 kg I&O - Last 24 Hours: Intake & Output 02/03/20 02/04/20 02/04/20 22:59 06:59 14:59 Intake Total 350 Balance 350 Med Orders - Current: Current Medications Albuterol/Ipratropium (Duoneb 3.0-0.5 Mg/3 Ml) 3 ml NEB Q4HRRT PRN PRN Reason: Shortness Of Breath/wheezing Bisacodyl (Dulcolax) 10 mg RECTAL DAILY PRN PRN Reason: Constipation Calcium Carbonate/Glycine (Tums) 1,000 mg PO Q2HR PRN PRN Reason: Indigestion Docusate Sodium (Colace) 100 mg PO DAILY [facility] Last Admin: 02/03/20 09:14 Dose: 100 mg Donepezil HCl (Aricept) 10 mg PO BEDTIME [facility] Last Admin: 02/03/20 21:39 Dose: 10 mg Enoxaparin Sodium (Lovenox) 40 mg SUBCUT Q24H [facility] Last Admin: 02/03/20 16:22 Dose: 40 mg Omeprazole (Omeprazole) 40 mg PO ACBREAKFAST [facility] Last Admin: 02/04/20 06:32 Dose: 40 mg Polyethylene Glycol (Miralax) 17 gm PO DAILY PRN PRN Reason: Constipation Quetiapine Fumarate (Seroquel) 50 mg PO DAILY [facility] Last Admin: 02/03/20 09:14 Dose: 50 mg Quetiapine Fumarate (Seroquel) 150 mg PO BEDTIME [facility] Last Admin: 02/03/20 21:39 Dose: 150 mg Discontinued Medications Diphenhydramine HCl (Benadryl) 25 mg IM Q4H PRN PRN Reason: Agitation Haloperidol Lactate (Haldol) 5 mg IM Q6H PRN PRN Reason: Agitation Last Admin: 02/02/20 05:59 Dose: 5 mg Lorazepam (Ativan) 2 mg IM Q4H PRN PRN Reason: Agitation Last Admin: 02/02/20 06:01 Dose: 2 mg Olanzapine (Zyprexa Zydis) 10 mg PO ONETIME ONE Stop: 01/27/20 14:31 Last Admin: 01/27/20 15:02 Dose: 10 mg Olanzapine (Zyprexa) 5 mg IM Q6H PRN PRN Reason: Agitation Quetiapine Fumarate (Seroquel) 25 mg PO BID [facility] Quetiapine Fumarate (Seroquel) 100 mg PO BEDTIME [facility] Last Admin: 02/01/20 22:05 Dose: 100 mg Sterile Water (Sterile Water For Injection) 1.2 ml INJECT ONETIME ONE Stop: 01/27/20 16:17 Last Admin: 01/27/20 17:07 Dose: 1.2 ml Ziprasidone (Geodon) 20 mg IM ONETIME ONE Stop: 01/27/20 16:17 Last Admin: 01/27/20 17:06 Dose: 20 mg - Exam General: Alert, Oriented, Cooperative, No Acute Distress Lungs: Clear to Auscultation, Normal Respiratory Effort Cardiovascular: Regular Rate, Regular Rhythm GI/Abdominal Exam: Normal Bowel Sounds, Soft, Non-Tender Extremities: Normal Inspection, Normal Range of Motion, Non-Tender, No Pedal Edema Neurological: No New Focal Deficit Psy/Mental Status: Alert, Normal Affect, Anxious (feels as though people are stealing from his house. Does not get agitated. Able to talk out of anxiety with redirection) Sepsis Event Note - Evaluation Sepsis Screening Result: No Definite Risk - Focused Exam Vital Signs: Vital Signs Temp Temp Pulse Resp BP Pulse Ox 02/04/20 07:37 96.9 F 60 17 121/73 97 02/04/20 00:00 97.3 F 74 15 156/92 H 96 Date Exam was Performed: 02/04/20 Time Exam was Performed: 08:39 - Problem List & Annotations (1) Agitation due to dementia SNOMED Code(s): 836801556 Code(s): F03.91 - UNSPECIFIED DEMENTIA WITH BEHAVIORAL DISTURBANCE Status: Acute Current Visit: Yes (2) Fronto-temporal dementia SNOMED Code(s): 654101246 Code(s): G31.09 - OTHER FRONTOTEMPORAL DEMENTIA; F02.80 - DEMENTIA IN OTH DISEASES CLASSD ELSWHR W/O BEHAVRL DISTURB Status: Acute Current Visit: Yes - Problem List Review Problem List Initiated/Reviewed/Updated: Yes - My Orders Last 24 Hours: My Active Orders 02/03/20 11:23 Calcium Carbonate [Tums] 1,000 mg PO Q2HR PRN - Plan Plan:: This 69 year old male admitted with agitation due to dementia 1. Fronto-temporal dementia - Continue Seroquel 150 mg at bedtime and 50 mg in AM - Aricept 10 mg at bedtime - Memory care unit recommended by both Dr Sharp psychiatry and Dr Murphy Neurology. VTE prophylaxis: Lovenox Dispo: Pending placement, social research assistant/case management consulted to facilitate this.
[2020-02-04] MEDS: Docusate Sodium 100 MG Cap PO SCH (08:39)
[2020-02-04] MEDS: Enoxaparin 40 MG/0.4 ML Syringe SUBCUT SCH (16:54)
[2020-02-04] MEDS: Donepezil 10 MG Tab PO SCH (20:19)
[2020-02-05] MEDS: Omeprazole 20 MG Cap.CR PO SCH (08:30)
[2020-02-05] MEDS: Docusate Sodium 100 MG Cap PO SCH (08:31)
[2020-02-05] MEDS ORDERED: Carboxymethylcellulose Sodium 0.5% Ophth Soln 0.4 ML UD Box of 30 EYEBOTH PRN (10:25)
--- NOTE | 2020-02-05 11:59 | PCM.PN ---
- General Info Date of Service: 02/05/20 Admission Dx/Problem (Free Text): Admission Diagnosis/Problem Admission Diagnosis/Problem Altered mental status Subjective Update: Doing well this morning. Denies chest pain or SOB. Appears calm. Alert and oriented to place and person. Reports he is [age] years or and the year is [birth year] something. - Review of Systems General: Denies: Fever, Weakness, Fatigue HEENT: Reports: Eye Pain. Denies: Contact Lenses, Dysphasia Pulmonary: Denies: Shortness of Breath, Pleuritic Chest Pain Cardiovascular: Denies: Chest Pain, Palpitations, Dyspnea on Exertion Gastrointestinal: Denies: Abdominal Pain, Constipation, Decreased Appetite Genitourinary: Denies: Dysuria, Frequency, Burning Musculoskeletal: Denies: Neck Pain, Shoulder Pain, Arm Pain Skin: Denies: Cyanosis, Jaundice, Mottled - Patient Data Vitals - Most Recent: Last Vital Signs Temp 36.6 C 02/05/20 07:29 Pulse 56 L 02/05/20 07:29 Resp 14 02/05/20 07:29 BP 127/81 02/05/20 07:29 Pulse Ox 96 02/05/20 07:29 Weight - Most Recent: 83.234 kg I&O - Last 24 Hours: Intake & Output 02/04/20 02/05/20 02/05/20 22:59 06:59 14:59 Intake Total 840 Balance 840 Med Orders - Current: Current Medications Albuterol/Ipratropium (Duoneb 3.0-0.5 Mg/3 Ml) 3 ml NEB Q4HRRT PRN PRN Reason: Shortness Of Breath/wheezing Artificial Tears (Refresh Plus 0.5%) 1 each EYEBOTH ASDIRECTED PRN PRN Reason: Dry Eyes Bacitracin/Polymyxin B Sulfate (Polysporin Ophth Oint) 0 gm EYEBOTH BID ANN Bisacodyl (Dulcolax) 10 mg RECTAL DAILY PRN PRN Reason: Constipation Calcium Carbonate/Glycine (Tums) 1,000 mg PO Q2HR PRN PRN Reason: Indigestion Docusate Sodium (Colace) 100 mg PO DAILY [facility] Last Admin: 02/05/20 08:31 Dose: 100 mg Donepezil HCl (Aricept) 10 mg PO BEDTIME [facility] Last Admin: 06/05/20 20:19 Dose: 10 mg Enoxaparin Sodium (Lovenox) 40 mg SUBCUT Q24H [facility] Last Admin: 02/04/20 16:54 Dose: 40 mg Omeprazole (Omeprazole) 40 mg PO ACBREAKFAST [facility] Last Admin: 02/05/20 08:30 Dose: 40 mg Polyethylene Glycol (Miralax) 17 gm PO DAILY PRN PRN Reason: Constipation Quetiapine Fumarate (Seroquel) 50 mg PO DAILY [facility] Last Admin: 02/05/20 08:30 Dose: 50 mg Quetiapine Fumarate (Seroquel) 150 mg PO BEDTIME [facility] Last Admin: 02/04/20 20:19 Dose: 150 mg Discontinued Medications Bacitracin (Bacitracin Ophth Oint) 1 gm EYEBOTH BID [facility] Diphenhydramine HCl (Benadryl) 25 mg IM Q4H PRN PRN Reason: Agitation Haloperidol Lactate (Haldol) 5 mg IM Q6H PRN PRN Reason: Agitation Last Admin: 02/02/20 05:59 Dose: 5 mg Lorazepam (Ativan) 2 mg IM Q4H PRN PRN Reason: Agitation Last Admin: 02/02/20 06:01 Dose: 2 mg Olanzapine (Zyprexa Zydis) 10 mg PO ONETIME ONE Stop: 01/27/20 14:31 Last Admin: 01/27/20 15:02 Dose: 10 mg Olanzapine (Zyprexa) 5 mg IM Q6H PRN PRN Reason: Agitation Quetiapine Fumarate (Seroquel) 25 mg PO BID [facility] Quetiapine Fumarate (Seroquel) 100 mg PO BEDTIME [facility] Last Admin: 02/01/20 22:05 Dose: 100 mg Sterile Water (Sterile Water For Injection) 1.2 ml INJECT ONETIME ONE Stop: 01/27/20 16:17 Last Admin: 01/27/20 17:07 Dose: 1.2 ml Ziprasidone (Geodon) 20 mg IM ONETIME ONE Stop: 01/27/20 16:17 Last Admin: 01/27/20 17:06 Dose: 20 mg - Exam General: Alert, Oriented, Cooperative, No Acute Distress HEENT: Pupils Equal, Pupils Reactive, Mucous Membr. Moist/[place] Lungs: Clear to Auscultation, Normal Respiratory Effort Cardiovascular: Regular Rate, Regular Rhythm GI/Abdominal Exam: Normal Bowel Sounds, Soft, Non-Tender Extremities: Normal Inspection, Normal Range of Motion, Non-Tender Peripheral Pulses: 3+: Dorsalis Pedis (L), Dorsalis Pedis (R) Sepsis Event Note - Evaluation Sepsis Screening Result: No Definite Risk - Focused Exam Vital Signs: Vital Signs Temp Pulse Resp BP Pulse Ox 02/05/20 07:29 36.6 C 56 L 14 127/81 96 Date Exam was Performed: 02/05/20 Time Exam was Performed: 12:00 - Problem List & Annotations (1) Altered mental state SNOMED Code(s): 044687309 Code(s): R41.82 - ALTERED MENTAL STATUS, UNSPECIFIED Status: Acute Current Visit: Yes (2) Fronto-temporal dementia SNOMED Code(s): 890834941 Code(s): G31.09 - OTHER FRONTOTEMPORAL DEMENTIA; F02.80 - DEMENTIA IN OTH DISEASES CLASSD ELSWHR W/O BEHAVRL DISTURB Status: Acute Current Visit: Yes (3) Medication noncompliance due to cognitive impairment SNOMED Code(s): 798325060, 042955890 Code(s): Z91.14 - PATIENT'S OTHER NONCOMPLIANCE WITH MEDICATION REGIMEN Status: Acute Current Visit: No - Problem List Review Problem List Initiated/Reviewed/Updated: Yes - My Orders Last 24 Hours: My Active Orders 02/05/20 16:00 Vital Signs [RC] Q8H - Plan Plan:: This 69 year old male admitted with agitation due to dementia 1. Fronto-temporal dementia - Continue Seroquel 150 mg at bedtime and 50 mg in AM - Aricept 10 mg at bedtime - Memory care unit recommended by both Dr Sharp psychiatry and Dr Murphy Neurology. -cont fall precautions VTE prophylaxis: Lovenox Dispo: Pending placement, social work lecturer/case management consulted to facilitate this.
[2020-02-05] MEDS ORDERED: Bacitracin/Polymyxin B Ophth Oint 3.5 GM Tube EYEBOTH SCH (12:00)
[2020-02-05] MEDS: Bacitracin/Polymyxin B Ophth Oint 3.5 GM Tube EYEBOTH SCH ×2 (12:13→21:50)
[2020-02-05] MEDS: Enoxaparin 40 MG/0.4 ML Syringe SUBCUT SCH (16:49)
[2020-02-05] MEDS: Donepezil 10 MG Tab PO SCH (21:49)
[2020-02-06] MEDS: Omeprazole 20 MG Cap.CR PO SCH (06:30)
[2020-02-06] MEDS: Docusate Sodium 100 MG Cap PO SCH (08:56)
[2020-02-06] MEDS: Bacitracin/Polymyxin B Ophth Oint 3.5 GM Tube EYEBOTH SCH ×2 (08:56→20:53)
--- NOTE | 2020-02-06 11:04 | PCM.PN ---
- General Info Date of Service: 02/06/20 Admission Dx/Problem (Free Text): Admission Diagnosis/Problem Admission Diagnosis/Problem Altered mental status Subjective Update: Patient seen and examined at bedside, no acute distress, resting comfortably, - Review of Systems General: Denies: Fever, Weakness, Fatigue HEENT: Denies: Sore Throat Pulmonary: Denies: Pleuritic Chest Pain, Cough Cardiovascular: Denies: Chest Pain, Dyspnea on Exertion Gastrointestinal: Denies: Abdominal Pain, Decreased Appetite, Diarrhea Genitourinary: Denies: Dysuria, Frequency, Burning, Pain, Urgency Musculoskeletal: Denies: Neck Pain, Shoulder Pain, Arm Pain, Hand Pain Skin: Denies: Cyanosis, Jaundice, Mottled Neurological: Reports: Confusion, Paresthesia. Denies: Dizziness, Headache - Patient Data Vitals - Most Recent: Last Vital Signs Temp 36.7 C 02/06/20 07:00 Pulse 60 02/06/20 07:00 Resp 18 02/06/20 07:00 BP 93/75 02/06/20 07:00 Pulse Ox 98 02/06/20 07:00 Weight - Most Recent: 83.234 kg I&O - Last 24 Hours: Intake & Output 02/05/20 02/06/20 02/06/20 22:59 06:59 14:59 Intake Total 650 300 Output Total 500 500 Balance 150 -200 Lab Results Last 24 Hours: Laboratory Results - last 24 hr 02/05/20 Range/Units 12:05 WBC 5.53 (4.0-11.0) K/uL RBC 4.89 (4.50-5.90) M/uL Hgb 15.3 (13.0-17.0) g/dL Hct 45.4 (38.0-50.0) % MCV 92.8 (80.0-98.0) fL MCH 31.3 (27.0-32.0) pg MCHC 33.7 (31.0-37.0) g/dL RDW Std Deviation 45.5 (28.0-62.0) fl RDW Coeff of [place] 13 (11.0-15.0) % Plt Count 245 (150-400) K/uL MPV 10.40 (7.40-12.00) fL Neut % (Auto) 53.7 (48.0-80.0) % Lymph % (Auto) 31.5 (16.0-40.0) % [place] % (Auto) 11.6 (0.0-15.0) % Eos % (Auto) 2.7 (0.0-7.0) % Baso % (Auto) 0.5 (0.0-1.5) % Neut # (Auto) 3.0 (1.4-5.7) K/uL Lymph # (Auto) 1.7 (0.6-2.4) K/uL [place] # (Auto) 0.6 (0.0-0.8) K/uL Eos # (Auto) 0.2 (0.0-0.7) K/uL Baso # (Auto) 0.0 (0.0-0.1) K/uL Nucleated RBC % 0.0 /100WBC Nucleated RBCs # 0 K/uL Med Orders - Current: Current Medications Albuterol/Ipratropium (Duoneb 3.0-0.5 Mg/3 Ml) 3 ml NEB Q4HRRT PRN PRN Reason: Shortness Of Breath/wheezing Artificial Tears (Refresh Plus 0.5%) 1 each EYEBOTH ASDIRECTED PRN PRN Reason: Dry Eyes Bacitracin/Polymyxin B Sulfate (Polysporin Ophth Oint) 0 gm EYEBOTH BID [facility] Last Admin: 02/06/20 08:56 Dose: 3.5 gm Bisacodyl (Dulcolax) 10 mg RECTAL DAILY PRN PRN Reason: Constipation Calcium Carbonate/Glycine (Tums) 1,000 mg PO Q2HR PRN PRN Reason: Indigestion Docusate Sodium (Colace) 100 mg PO DAILY [facility] Last Admin: 02/06/20 08:56 Dose: 100 mg Donepezil HCl (Aricept) 10 mg PO BEDTIME [facility] Last Admin: 02/05/20 21:49 Dose: 10 mg Enoxaparin Sodium (Lovenox) 40 mg SUBCUT Q24H [facility] Last Admin: 02/05/20 16:49 Dose: 40 mg Omeprazole (Omeprazole) 40 mg PO ACBREAKFAST [facility] Last Admin: 02/06/20 06:30 Dose: 40 mg Polyethylene Glycol (Miralax) 17 gm PO DAILY PRN PRN Reason: Constipation Quetiapine Fumarate (Seroquel) 50 mg PO DAILY [facility] Last Admin: 02/06/20 08:56 Dose: 50 mg Quetiapine Fumarate (Seroquel) 150 mg PO BEDTIME [facility] Last Admin: 02/05/20 21:48 Dose: 150 mg Discontinued Medications Bacitracin (Bacitracin Ophth Oint) 1 gm EYEBOTH BID [facility] Last Admin: 02/05/20 12:41 Dose: Not Given Diphenhydramine HCl (Benadryl) 25 mg IM Q4H PRN PRN Reason: Agitation Haloperidol Lactate (Haldol) 5 mg IM Q6H PRN PRN Reason: Agitation Last Admin: 02/02/20 05:59 Dose: 5 mg Lorazepam (Ativan) 2 mg IM Q4H PRN PRN Reason: Agitation Last Admin: 02/02/20 06:01 Dose: 2 mg Olanzapine (Zyprexa Zydis) 10 mg PO ONETIME ONE Stop: 01/27/20 14:31 Last Admin: 01/27/20 15:02 Dose: 10 mg Olanzapine (Zyprexa) 5 mg IM Q6H PRN PRN Reason: Agitation Quetiapine Fumarate (Seroquel) 25 mg PO BID [facility] Quetiapine Fumarate (Seroquel) 100 mg PO BEDTIME [facility] Last Admin: 02/01/20 22:05 Dose: 100 mg Sterile Water (Sterile Water For Injection) 1.2 ml INJECT ONETIME ONE Stop: 01/27/20 16:17 Last Admin: 01/27/20 17:07 Dose: 1.2 ml Ziprasidone (Geodon) 20 mg IM ONETIME ONE Stop: 01/27/20 16:17 Last Admin: 01/27/20 17:06 Dose: 20 mg - Exam General: Alert, Oriented, Cooperative Lungs: Clear to Auscultation, Normal Respiratory Effort Cardiovascular: Regular Rate, Regular Rhythm GI/Abdominal Exam: Normal Bowel Sounds, Soft, Non-Tender Extremities: Normal Inspection, Normal Range of Motion, Non-Tender Peripheral Pulses: 3+: Dorsalis Pedis (L), Dorsalis Pedis (R) Sepsis Event Note - Evaluation Sepsis Screening Result: No Definite Risk - Focused Exam Vital Signs: Vital Signs Temp Pulse Resp BP Pulse Ox 02/06/20 07:00 36.7 C 60 18 93/75 98 Date Exam was Performed: 02/06/20 Time Exam was Performed: 13:57 - Problem List & Annotations (1) Altered mental state SNOMED Code(s): 135425303 Code(s): R41.82 - ALTERED MENTAL STATUS, UNSPECIFIED Status: Acute Current Visit: Yes (2) Fronto-temporal dementia SNOMED Code(s): 155476106 Code(s): G31.09 - OTHER FRONTOTEMPORAL DEMENTIA; F02.80 - DEMENTIA IN OTH DISEASES CLASSD ELSWHR W/O BEHAVRL DISTURB Status: Acute Current Visit: Yes (3) Medication noncompliance due to cognitive impairment SNOMED Code(s): 899746200, 711612245 Code(s): Z91.14 - PATIENT'S OTHER NONCOMPLIANCE WITH MEDICATION REGIMEN Status: Acute Current Visit: No - My Orders Last 24 Hours: My Active Orders 02/05/20 16:00 Vital Signs [RC] Q8H - Plan Plan:: 69 y/o M admitted for AMS due to his underlying fronto-temporal dementia Currently we are looking for a safe disposition for the patient to a memory care facility , SW on board
[2020-02-06] MEDS: Enoxaparin 40 MG/0.4 ML Syringe SUBCUT SCH (16:11)
[2020-02-06] MEDS: Donepezil 10 MG Tab PO SCH (20:48)
[2020-02-07] MEDS: Omeprazole 20 MG Cap.CR PO SCH (07:14)
[2020-02-07] MEDS: Docusate Sodium 100 MG Cap PO SCH (08:37)
[2020-02-07] MEDS: Bacitracin/Polymyxin B Ophth Oint 3.5 GM Tube EYEBOTH SCH ×2 (08:40→21:08)
--- NOTE | 2020-02-07 09:37 | PCM.PN ---
- General Info Date of Service: 02/07/20 Admission Dx/Problem (Free Text): Admission Diagnosis/Problem Admission Diagnosis/Problem Altered mental status Subjective Update: Reports he is feeling well today. Relaxing after eating breakfast. Denies any pain. No dyspnea Functional Status: Reports: Pain Controlled, Tolerating Diet, Ambulating, Urinating - Review of Systems General: Reports: No Symptoms. Denies: Fatigue, Malaise HEENT: Reports: No Symptoms Pulmonary: Reports: No Symptoms. Denies: Shortness of Breath Cardiovascular: Reports: No Symptoms. Denies: Chest Pain Gastrointestinal: Reports: No Symptoms. Denies: Abdominal Pain Genitourinary: Reports: No Symptoms Neurological: Reports: Confusion (intermittent and gets frustrated " my brain just doesnt work") Psychiatric: Reports: No Symptoms - Patient Data Vitals - Most Recent: Last Vital Signs Temp 98.1 F 02/07/20 07:15 Pulse 58 L 02/07/20 07:15 Resp 17 02/07/20 07:15 BP 135/63 02/07/20 07:15 Pulse Ox 97 02/07/20 07:15 Weight - Most Recent: 83.234 kg I&O - Last 24 Hours: Intake & Output 02/06/20 02/07/20 02/07/20 22:59 06:59 14:59 Intake Total 500 700 Balance 500 700 Med Orders - Current: Current Medications Albuterol/Ipratropium (Duoneb 3.0-0.5 Mg/3 Ml) 3 ml NEB Q4HRRT PRN PRN Reason: Shortness Of Breath/wheezing Artificial Tears (Refresh Plus 0.5%) 1 each EYEBOTH ASDIRECTED PRN PRN Reason: Dry Eyes Bacitracin/Polymyxin B Sulfate (Polysporin Ophth Oint) 0 gm EYEBOTH BID [facility] Last Admin: 02/07/20 08:40 Dose: 0.25 strip Bisacodyl (Dulcolax) 10 mg RECTAL DAILY PRN PRN Reason: Constipation Calcium Carbonate/Glycine (Tums) 1,000 mg PO Q2HR PRN PRN Reason: Indigestion Docusate Sodium (Colace) 100 mg PO DAILY [facility] Last Admin: 02/07/20 08:37 Dose: 100 mg Donepezil HCl (Aricept) 10 mg PO BEDTIME [facility] Last Admin: 02/06/20 20:48 Dose: 10 mg Enoxaparin Sodium (Lovenox) 40 mg SUBCUT Q24H [facility] Last Admin: 02/06/20 16:11 Dose: 40 mg Omeprazole (Omeprazole) 40 mg PO ACBREAKFAST [facility] Last Admin: 02/07/20 07:14 Dose: 40 mg Polyethylene Glycol (Miralax) 17 gm PO DAILY PRN PRN Reason: Constipation Quetiapine Fumarate (Seroquel) 50 mg PO DAILY [facility] Last Admin: 02/07/20 08:37 Dose: 50 mg Quetiapine Fumarate (Seroquel) 150 mg PO BEDTIME [facility] Last Admin: 02/06/20 20:48 Dose: 150 mg Discontinued Medications Bacitracin (Bacitracin Ophth Oint) 1 gm EYEBOTH BID [facility] Last Admin: 02/05/20 12:41 Dose: Not Given Diphenhydramine HCl (Benadryl) 25 mg IM Q4H PRN PRN Reason: Agitation Haloperidol Lactate (Haldol) 5 mg IM Q6H PRN PRN Reason: Agitation Last Admin: 02/02/20 05:59 Dose: 5 mg Lorazepam (Ativan) 2 mg IM Q4H PRN PRN Reason: Agitation Last Admin: 02/02/20 06:01 Dose: 2 mg Olanzapine (Zyprexa Zydis) 10 mg PO ONETIME ONE Stop: 01/27/20 14:31 Last Admin: 01/27/20 15:02 Dose: 10 mg Olanzapine (Zyprexa) 5 mg IM Q6H PRN PRN Reason: Agitation Quetiapine Fumarate (Seroquel) 25 mg PO BID [facility] Quetiapine Fumarate (Seroquel) 100 mg PO BEDTIME [facility] Last Admin: 02/01/20 22:05 Dose: 100 mg Sterile Water (Sterile Water For Injection) 1.2 ml INJECT ONETIME ONE Stop: 01/27/20 16:17 Last Admin: 01/27/20 17:07 Dose: 1.2 ml Ziprasidone (Geodon) 20 mg IM ONETIME ONE Stop: 01/27/20 16:17 Last Admin: 01/27/20 17:06 Dose: 20 mg - Exam General: Alert, Cooperative, No Acute Distress. No: Oriented Lungs: Clear to Auscultation, Normal Respiratory Effort Cardiovascular: Regular Rate, Regular Rhythm GI/Abdominal Exam: Normal Bowel Sounds, Soft, Non-Tender Extremities: Normal Inspection, Normal Range of Motion, Non-Tender, No Pedal Edema Neurological: No New Focal Deficit Psy/Mental Status: Alert, Normal Affect, Normal Mood Sepsis Event Note - Evaluation Sepsis Screening Result: No Definite Risk - Focused Exam Vital Signs: Vital Signs Temp Pulse Resp BP Pulse Ox 02/07/20 07:15 98.1 F 58 L 17 135/63 97 02/07/20 00:09 98.1 F 93 18 133/78 98 Date Exam was Performed: 02/07/20 Time Exam was Performed: 09:33 - Problem List & Annotations (1) Agitation due to dementia SNOMED Code(s): 069535825 Code(s): F03.91 - UNSPECIFIED DEMENTIA WITH BEHAVIORAL DISTURBANCE Status: Acute Current Visit: Yes (2) Fronto-temporal dementia SNOMED Code(s): 311679358 Code(s): G31.09 - OTHER FRONTOTEMPORAL DEMENTIA; F02.80 - DEMENTIA IN OTH DISEASES CLASSD ELSWHR W/O BEHAVRL DISTURB Status: Acute Current Visit: Yes - Problem List Review Problem List Initiated/Reviewed/Updated: Yes - My Orders Last 24 Hours: My Active Orders 02/07/20 09:45 Carboxymethylcellulose Sodium [Refresh Plus 0.5%] 1 each EYEBOTH TID - Plan Plan:: This 69 year old male admitted with agitation due to dementia 1. Fronto-temporal dementia - Continue Seroquel 150 mg at bedtime and 50 mg in AM - Aricept 10 mg at bedtime - Memory care unit recommended by both Dr Sharp psychiatry and Dr Murphy Neurology. - Doing well with no agitation noted. VTE prophylaxis: Lovenox Dispo: Pending placement, social media coordinator/case management consulted to facilitate this.
[2020-02-07] MEDS: Carboxymethylcellulose Sodium 0.5% Ophth Soln 0.4 ML UD Box of 30 EYEBOTH SCH ×3 (10:15→23:21)
[2020-02-07] MEDS: Enoxaparin 40 MG/0.4 ML Syringe SUBCUT SCH (16:13)
[2020-02-07] MEDS: Donepezil 10 MG Tab PO SCH (21:06)
[2020-02-08] MEDS: Carboxymethylcellulose Sodium 0.5% Ophth Soln 0.4 ML UD Box of 30 EYEBOTH SCH ×3 (06:14→22:22)
[2020-02-08] MEDS: Omeprazole 20 MG Cap.CR PO SCH (08:02)
--- NOTE | 2020-02-08 08:02 | PCM.PN ---
- General Info Date of Service: 02/08/20 Admission Dx/Problem (Free Text): Admission Diagnosis/Problem Admission Diagnosis/Problem Altered mental status Subjective Update: Sitting up on edge of bed. Doing well. No pain. Reports eyes are feeling better less dry feeling after eye drops started. No agitation noted. - Review of Systems General: Reports: No Symptoms Pulmonary: Reports: No Symptoms. Denies: Shortness of Breath Cardiovascular: Reports: No Symptoms. Denies: Chest Pain Gastrointestinal: Reports: No Symptoms. Denies: Abdominal Pain, Nausea, Vomiting Genitourinary: Reports: No Symptoms. Denies: Dysuria, Frequency, Burning Musculoskeletal: Reports: No Symptoms Skin: Reports: No Symptoms Neurological: Reports: Confusion (reports feeling confused while looking at food menu to order breakfast.) Psychiatric: Reports: No Symptoms - Patient Data Vitals - Most Recent: Last Vital Signs Temp 98.1 F 02/07/20 20:00 Pulse 55 L 02/07/20 20:00 Resp 18 02/07/20 20:00 BP 141/72 H 02/07/20 20:00 Pulse Ox 96 02/07/20 20:00 Weight - Most Recent: 83.234 kg I&O - Last 24 Hours: Intake & Output 02/07/20 02/08/20 02/08/20 22:59 06:59 14:59 Intake Total 540 450 Output Total 300 Balance 540 150 Med Orders - Current: Current Medications Albuterol/Ipratropium (Duoneb 3.0-0.5 Mg/3 Ml) 3 ml NEB Q4HRRT PRN PRN Reason: Shortness Of Breath/wheezing Artificial Tears (Refresh Plus 0.5%) 1 each EYEBOTH TID [facility] Last Admin: 02/08/20 06:14 Dose: Not Given Bacitracin/Polymyxin B Sulfate (Polysporin Ophth Oint) 0 gm EYEBOTH BID [facility] Last Admin: 02/07/20 21:08 Dose: 0.25 strip Bisacodyl (Dulcolax) 10 mg RECTAL DAILY PRN PRN Reason: Constipation Calcium Carbonate/Glycine (Tums) 1,000 mg PO Q2HR PRN PRN Reason: Indigestion Docusate Sodium (Colace) 100 mg PO DAILY [facility] Last Admin: 02/07/20 08:37 Dose: 100 mg Donepezil HCl (Aricept) 10 mg PO BEDTIME [facility] Last Admin: 02/07/20 21:06 Dose: 10 mg Enoxaparin Sodium (Lovenox) 40 mg SUBCUT Q24H [facility] Last Admin: 02/07/20 16:13 Dose: 40 mg Omeprazole (Omeprazole) 40 mg PO ACBREAKFAST [facility] Last Admin: 02/07/20 07:14 Dose: 40 mg Polyethylene Glycol (Miralax) 17 gm PO DAILY PRN PRN Reason: Constipation Quetiapine Fumarate (Seroquel) 50 mg PO DAILY [facility] Last Admin: 02/07/20 08:37 Dose: 50 mg Quetiapine Fumarate (Seroquel) 150 mg PO BEDTIME [facility] Last Admin: 02/07/20 21:06 Dose: 150 mg Discontinued Medications Artificial Tears (Refresh Plus 0.5%) 1 each EYEBOTH ASDIRECTED PRN PRN Reason: Dry Eyes Bacitracin (Bacitracin Ophth Oint) 1 gm EYEBOTH BID [facility] Last Admin: 02/05/20 12:41 Dose: Not Given Diphenhydramine HCl (Benadryl) 25 mg IM Q4H PRN PRN Reason: Agitation Haloperidol Lactate (Haldol) 5 mg IM Q6H PRN PRN Reason: Agitation Last Admin: 02/02/20 05:59 Dose: 5 mg Lorazepam (Ativan) 2 mg IM Q4H PRN PRN Reason: Agitation Last Admin: 02/02/20 06:01 Dose: 2 mg Olanzapine (Zyprexa Zydis) 10 mg PO ONETIME ONE Stop: 01/27/20 14:31 Last Admin: 01/27/20 15:02 Dose: 10 mg Olanzapine (Zyprexa) 5 mg IM Q6H PRN PRN Reason: Agitation Quetiapine Fumarate (Seroquel) 25 mg PO BID [facility] Quetiapine Fumarate (Seroquel) 100 mg PO BEDTIME [facility] Last Admin: 02/01/20 22:05 Dose: 100 mg Sterile Water (Sterile Water For Injection) 1.2 ml INJECT ONETIME ONE Stop: 01/27/20 16:17 Last Admin: 01/27/20 17:07 Dose: 1.2 ml Ziprasidone (Geodon) 20 mg IM ONETIME ONE Stop: 01/27/20 16:17 Last Admin: 01/27/20 17:06 Dose: 20 mg - Exam General: Alert, Cooperative, No Acute Distress. No: Oriented (x2) Lungs: Clear to Auscultation, Normal Respiratory Effort Cardiovascular: Regular Rate, Regular Rhythm GI/Abdominal Exam: Normal Bowel Sounds, Soft, Non-Tender Extremities: Normal Inspection, Normal Range of Motion, Non-Tender, No Pedal Edema Psy/Mental Status: Alert, Normal Affect, Normal Mood Sepsis Event Note - Evaluation Sepsis Screening Result: No Definite Risk - Problem List & Annotations (1) Fronto-temporal dementia SNOMED Code(s): 646824284 Code(s): G31.09 - OTHER FRONTOTEMPORAL DEMENTIA; F02.80 - DEMENTIA IN OTH DISEASES CLASSD ELSWHR W/O BEHAVRL DISTURB Status: Acute Current Visit: Yes - Problem List Review Problem List Initiated/Reviewed/Updated: Yes - My Orders Last 24 Hours: My Active Orders 02/07/20 09:45 Carboxymethylcellulose Sodium [Refresh Plus 0.5%] 1 each EYEBOTH TID - Plan Plan:: This 69 year old male admitted with agitation due to dementia 1. Fronto-temporal dementia - Continue Seroquel 150 mg at bedtime and 50 mg in AM - Aricept 10 mg at bedtime - Memory care unit recommended by both Dr Sharp psychiatry and Dr Murphy Neurology. - Doing well with no agitation noted. VTE prophylaxis: Lovenox Dispo: Pending placement, Possible DC on to [facility] pending further approval.
[2020-02-08] MEDS: Docusate Sodium 100 MG Cap PO SCH (10:13)
[2020-02-08] MEDS: Bacitracin/Polymyxin B Ophth Oint 3.5 GM Tube EYEBOTH SCH ×2 (10:13→20:13)
[2020-02-08] MEDS: Enoxaparin 40 MG/0.4 ML Syringe SUBCUT SCH (16:56)
[2020-02-08] MEDS: Donepezil 10 MG Tab PO SCH (20:12)
[2020-02-09] MEDS: Carboxymethylcellulose Sodium 0.5% Ophth Soln 0.4 ML UD Box of 30 EYEBOTH SCH ×3 (06:35→21:38)
--- NOTE | 2020-02-09 07:54 | PCM.PN ---
- General Info Date of Service: 02/09/20 Admission Dx/Problem (Free Text): Admission Diagnosis/Problem Admission Diagnosis/Problem Altered mental status Subjective Update: Doing well this morning, up to bathroom with little assistance. NO pain. Pleasant and alert. - Review of Systems Pulmonary: Reports: No Symptoms. Denies: Shortness of Breath Cardiovascular: Reports: No Symptoms. Denies: Chest Pain Gastrointestinal: Reports: No Symptoms. Denies: Abdominal Pain, Nausea Genitourinary: Reports: No Symptoms Musculoskeletal: Reports: No Symptoms Neurological: Reports: Confusion Psychiatric: Reports: No Symptoms - Patient Data Vitals - Most Recent: Last Vital Signs Temp 97.9 F 02/08/20 19:43 Pulse 52 L 02/08/20 19:43 Resp 17 02/08/20 19:43 BP 111/77 02/08/20 19:43 Pulse Ox 97 02/08/20 19:43 Weight - Most Recent: 83.234 kg I&O - Last 24 Hours: Intake & Output 02/08/20 02/09/20 02/09/20 22:59 06:59 14:59 Intake Total 400 Balance 400 Med Orders - Current: Current Medications Albuterol/Ipratropium (Duoneb 3.0-0.5 Mg/3 Ml) 3 ml NEB Q4HRRT PRN PRN Reason: Shortness Of Breath/wheezing Artificial Tears (Refresh Plus 0.5%) 1 each EYEBOTH TID [facility] Last Admin: 02/09/20 06:35 Dose: Not Given Bacitracin/Polymyxin B Sulfate (Polysporin Ophth Oint) 0 gm EYEBOTH BID [facility] Last Admin: 02/08/20 20:13 Dose: 0.25 strip Bisacodyl (Dulcolax) 10 mg RECTAL DAILY PRN PRN Reason: Constipation Calcium Carbonate/Glycine (Tums) 1,000 mg PO Q2HR PRN PRN Reason: Indigestion Docusate Sodium (Colace) 100 mg PO DAILY [facility] Last Admin: 02/08/20 10:13 Dose: 100 mg Donepezil HCl (Aricept) 10 mg PO BEDTIME [facility] Last Admin: 02/08/20 20:12 Dose: 10 mg Enoxaparin Sodium (Lovenox) 40 mg SUBCUT Q24H [facility] Last Admin: 02/08/20 16:56 Dose: 40 mg Omeprazole (Omeprazole) 40 mg PO ACBREAKFAST [facility] Last Admin: 02/08/20 08:02 Dose: 40 mg Polyethylene Glycol (Miralax) 17 gm PO DAILY PRN PRN Reason: Constipation Quetiapine Fumarate (Seroquel) 50 mg PO DAILY [facility] Last Admin: 02/08/20 10:13 Dose: 50 mg Quetiapine Fumarate (Seroquel) 150 mg PO BEDTIME [facility] Last Admin: 02/08/20 20:12 Dose: 150 mg Discontinued Medications Artificial Tears (Refresh Plus 0.5%) 1 each EYEBOTH ASDIRECTED PRN PRN Reason: Dry Eyes Bacitracin (Bacitracin Ophth Oint) 1 gm EYEBOTH BID [facility] Last Admin: 02/05/20 12:41 Dose: Not Given Diphenhydramine HCl (Benadryl) 25 mg IM Q4H PRN PRN Reason: Agitation Haloperidol Lactate (Haldol) 5 mg IM Q6H PRN PRN Reason: Agitation Last Admin: 02/02/20 05:59 Dose: 5 mg Lorazepam (Ativan) 2 mg IM Q4H PRN PRN Reason: Agitation Last Admin: 02/02/20 06:01 Dose: 2 mg Olanzapine (Zyprexa Zydis) 10 mg PO ONETIME ONE Stop: 01/27/20 14:31 Last Admin: 01/27/20 15:02 Dose: 10 mg Olanzapine (Zyprexa) 5 mg IM Q6H PRN PRN Reason: Agitation Quetiapine Fumarate (Seroquel) 25 mg PO BID [facility] Quetiapine Fumarate (Seroquel) 100 mg PO BEDTIME [facility] Last Admin: 02/01/20 22:05 Dose: 100 mg Sterile Water (Sterile Water For Injection) 1.2 ml INJECT ONETIME ONE Stop: 01/27/20 16:17 Last Admin: 01/27/20 17:07 Dose: 1.2 ml Ziprasidone (Geodon) 20 mg IM ONETIME ONE Stop: 01/27/20 16:17 Last Admin: 01/27/20 17:06 Dose: 20 mg - Exam General: Alert, Cooperative, No Acute Distress. No: Oriented (x2) Lungs: Clear to Auscultation, Normal Respiratory Effort Cardiovascular: Regular Rate, Regular Rhythm Extremities: Normal Inspection, Normal Range of Motion, Non-Tender, No Pedal Edema Neurological: No New Focal Deficit Psy/Mental Status: Alert, Normal Affect, Normal Mood. No: Anxious, Agitated Sepsis Event Note - Evaluation Sepsis Screening Result: No Definite Risk - Problem List & Annotations (1) Fronto-temporal dementia SNOMED Code(s): 555905089 Code(s): G31.09 - OTHER FRONTOTEMPORAL DEMENTIA; F02.80 - DEMENTIA IN OTH DISEASES CLASSD ELSWHR W/O BEHAVRL DISTURB Status: Acute Current Visit: Yes - Problem List Review Problem List Initiated/Reviewed/Updated: Yes - My Orders Last 24 Hours: My Active Orders 02/09/20 07:53 CORONAVIRUS COVID-19 PCR PHL Routine - Plan Plan:: This 69 year old male admitted with agitation due to dementia 1. Fronto-temporal dementia - Continue Seroquel 150 mg at bedtime and 50 mg in AM - Aricept 10 mg at bedtime - Memory care unit recommended by both Dr Sharp psychiatry and Dr Murphy Neurology. - Doing well with no agitation noted. VTE prophylaxis: Lovenox Dispo: Plan for discharge in am to [facility] memory care in [place]
[2020-02-09] MEDS: Omeprazole 20 MG Cap.CR PO SCH (08:50)
[2020-02-09] MEDS: Docusate Sodium 100 MG Cap PO SCH (08:50)
[2020-02-09] MEDS: Bacitracin/Polymyxin B Ophth Oint 3.5 GM Tube EYEBOTH SCH ×2 (08:52→21:38)
--- NOTE | 2020-02-09 13:36 | PCM.DCSUM1 ---
Discharge Summary - Hospital Course Brief History: Patient is a 69 y/o M with PMH of fronto-temporal dementia, diagnosed 1 year ago, followed by Dr Murphy, Neurology comes in due to AMS. Patient was brought in yesterday for similar complaints and was dischraged home but his agitation got worse so was brought back in. Reportedly per (who is the POA) patient has been compliant with his meds, but last 2 days has been refusing them, today patient went out into the traffic and was brought home by engineering systems analyst and later sent to ER. In the ER Vitals were stable, UA was unremarkable, CBC, CMP, CXR wasn't repeated as they were obtained less than 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 Patient was pleasant while speaking to me but was quite paranoid and had flight of ideas. After speaking with ER physician and tele-psych (Dr. Sharp ) it was deemed appropriate to admit patient for further management. Diagnosis: Stroke: No - Discharge Data Discharge Date: 02/10/20 Discharge Disposition: DC/Tfer to SNF 03 Condition: Good - Referral to Home Health Primary Care Physician: Steffanie Murphy MD - Discharge Diagnosis/Problem(s) (1) Fronto-temporal dementia SNOMED Code(s): 797595419 ICD Code: G31.09 - OTHER FRONTOTEMPORAL DEMENTIA; F02.80 - DEMENTIA IN OTH DISEASES CLASSD ELSWHR W/O BEHAVRL DISTURB Status: Acute Current Visit: Yes - Patient Summary/Data Consults: Consultations 01/27/20 16:54 Consult to Case Management/Jack Machine Operator [CONS] Routine 01/27/20 19:17 Consult to Physician [CONS] Routine Hospital Course: Admission Diagnoses: AMS Fronto-temporal dementia Discharge Diagnoses: Fronto-temporal dementia Other PMH CHUY Charles was admitted 01/26 for fronto-temporal dementia with worsening agitation and AMS at home. He was refusing to take medications and home and the felt like she was unable to care for him appropriately anymore. Dr Sharp, psychiatry and Dr Murphy were consulted on admission. They both recommended memory care unit for Melvin, as his behaviors and AMS were from front-temporal dementia not psychiatric concerns. He was stabilized on Seroquel 50 mg in the morning and 150 mg at bedtime. He also continues on Aricept as well. He has been stable were without agitation or AMS in over 7 days. He is alert, oriented x 2. He is able to perform self cares at home, but needs assistance with medication compliance. family services worker was able to help with placement at the [facility] in [facility] which is a memory care facility. I spoke with Dr Jeremiah MD at [facility] in [place] who will take over PCP care of Melvin. I will also fax information from admission to Dr Daniels as well. will pick him up today and bring him to [facility]. He is to return to ED or clinic if concerns should arise. - Patient Instructions Diet: Regular Diet as Tolerated Activity: As Tolerated, No Strenuous Activities Driving: Do Not Drive Showering/Bathing: May Shower Notify Provider of: Fever, Increased Pain, Swelling and Redness, Drainage, Nausea and/or Vomiting - Discharge Plan *PRESCRIPTION DRUG MONITORING PROGRAM REVIEWED*: Not Applicable *COPY OF PRESCRIPTION DRUG MONITORING REPORT IN PATIENT CAILIN: Not Applicable Prescriptions/Med Rec: Carboxymethylcellulose Sodium [Refresh Plus 0.5%] 1 each EYEBOTH TID #1 box Donepezil [Aricept] 10 mg PO DAILY #60 tablet QUEtiapine [SEROquel] 150 mg PO BEDTIME #90 tablet QUEtiapine [SEROquel] 50 mg PO DAILY #30 tablet Home Medications: Home Meds Carboxymethylcellulose Sodium [Refresh Plus 0.5%] 1 each EYEBOTH TID #1 box 06/20 [Rx] Donepezil [Aricept] 10 mg PO DAILY #60 tablet 02/09/20 [Rx] Omeprazole 40 mg PO ACBREAKFAST cap.cr 02/09/20 [Rx] QUEtiapine [SEROquel] 50 mg PO DAILY #30 tablet 02/09/20 [Rx] QUEtiapine [SEROquel] 150 mg PO BEDTIME #90 tablet 02/09/20 [Rx] Oxygen Therapy Mode: Room Air Patient Handouts: Confusion, Quetiapine tablets, Donepezil tablets Referrals: Steffanie Murphy MD [Primary Care Provider] - Rock Daniels MD [Ordering Only Provider] - - Discharge Summary/Plan Comment DC Time >30 min.: No - Patient Data Vitals - Most Recent: Last Vital Signs Temp 98.2 F 02/09/20 12:00 Pulse 54 L 02/09/20 12:00 Resp 18 02/09/20 12:00 BP 124/70 02/09/20 12:00 Pulse Ox 97 02/09/20 12:00 Weight - Most Recent: 83.234 kg I&O - Last 24 hours: Intake & Output 02/08/20 02/09/20 02/09/20 22:59 06:59 14:59 Intake Total 400 Balance 400 Lab Results - Last 24 hrs: Laboratory Results - last 24 hr 02/09/20 Range/Units 10:05 SARS-CoV-2 RNA (RT-PCR) NEGATIVE (NEGATIVE) Med Orders - Current: Current Medications Albuterol/Ipratropium (Duoneb 3.0-0.5 Mg/3 Ml) 3 ml NEB Q4HRRT PRN PRN Reason: Shortness Of Breath/wheezing Artificial Tears (Refresh Plus 0.5%) 1 each EYEBOTH TID [facility] Last Admin: 02/09/20 06:35 Dose: Not Given Bacitracin/Polymyxin B Sulfate (Polysporin Ophth Oint) 0 gm EYEBOTH BID [facility] Last Admin: 02/09/20 08:52 Dose: 0.25 strip Bisacodyl (Dulcolax) 10 mg RECTAL DAILY PRN PRN Reason: Constipation Calcium Carbonate/Glycine (Tums) 1,000 mg PO Q2HR PRN PRN Reason: Indigestion Docusate Sodium (Colace) 100 mg PO DAILY [facility] Last Admin: 02/09/20 08:50 Dose: 100 mg Donepezil HCl (Aricept) 10 mg PO BEDTIME [facility] Last Admin: 02/08/20 20:12 Dose: 10 mg Enoxaparin Sodium (Lovenox) 40 mg SUBCUT Q24H [facility] Last Admin: 02/08/20 16:56 Dose: 40 mg Omeprazole (Omeprazole) 40 mg PO ACBREAKFAST [facility] Last Admin: 02/09/20 08:50 Dose: 40 mg Polyethylene Glycol (Miralax) 17 gm PO DAILY PRN PRN Reason: Constipation Quetiapine Fumarate (Seroquel) 50 mg PO DAILY [facility] Last Admin: 02/09/20 08:50 Dose: 50 mg Quetiapine Fumarate (Seroquel) 150 mg PO BEDTIME [facility] Last Admin: 02/08/20 20:12 Dose: 150 mg Discontinued Medications Artificial Tears (Refresh Plus 0.5%) 1 each EYEBOTH ASDIRECTED PRN PRN Reason: Dry Eyes Bacitracin (Bacitracin Ophth Oint) 1 gm EYEBOTH BID [facility] Last Admin: 02/05/20 12:41 Dose: Not Given Diphenhydramine HCl (Benadryl) 25 mg IM Q4H PRN PRN Reason: Agitation Haloperidol Lactate (Haldol) 5 mg IM Q6H PRN PRN Reason: Agitation Last Admin: 02/02/20 05:59 Dose: 5 mg Lorazepam (Ativan) 2 mg IM Q4H PRN PRN Reason: Agitation Last Admin: 02/02/20 06:01 Dose: 2 mg Olanzapine (Zyprexa Zydis) 10 mg PO ONETIME ONE Stop: 01/27/20 14:31 Last Admin: 01/27/20 15:02 Dose: 10 mg Olanzapine (Zyprexa) 5 mg IM Q6H PRN PRN Reason: Agitation Quetiapine Fumarate (Seroquel) 25 mg PO BID [facility] Quetiapine Fumarate (Seroquel) 100 mg PO BEDTIME [facility] Last Admin: 02/01/20 22:05 Dose: 100 mg Sterile Water (Sterile Water For Injection) 1.2 ml INJECT ONETIME ONE Stop: 01/27/20 16:17 Last Admin: 01/27/20 17:07 Dose: 1.2 ml Ziprasidone (Geodon) 20 mg IM ONETIME ONE Stop: 01/27/20 16:17 Last Admin: 01/27/20 17:06 Dose: 20 mg - Exam General: Reports: Alert, Cooperative, No Acute Distress. Denies: Oriented (x2) Lungs: Reports: Clear to Auscultation, Normal Respiratory Effort Cardiovascular: Reports: Regular Rate, Regular Rhythm GI/Abdominal Exam: Normal Bowel Sounds, Soft, Non-Tender Wound/Incisions: Reports: Healing Well Neurological: Reports: No New Focal Deficit, Sensation Intact Psy/Mental Status: Reports: Alert, Normal Mood
[2020-02-09] MEDS: Enoxaparin 40 MG/0.4 ML Syringe SUBCUT SCH (17:16)
[2020-02-09 19:25] VITALS: BP 106/67; PULSE 56
[2020-02-09] MEDS: Donepezil 10 MG Tab PO SCH (21:35)
[2020-02-10] MEDS: Omeprazole 20 MG Cap.CR PO SCH (07:19)
[2020-02-10] MEDS: Carboxymethylcellulose Sodium 0.5% Ophth Soln 0.4 ML UD Box of 30 EYEBOTH SCH (07:19)
== END 2020-02-10 08:00 | DRG 57 ==
LOC: MW.ED 13:14 → MW.MS 15:17 → OBSVTOIN 01-28 11:50 → MW.MS 01-28 12:06
PROVIDERS: ADMIT Student in an Organized Health Care Education/Training Program; ATTEND Student in an Organized Health Care Education/Training Program
DX: F03.90 Unspecified dementia, unspecified severity, without behavioral disturbance, psychotic disturbance, mood disturbance, and anxiety (principal); R45.1 Restlessness and agitation; H54.7 Unspecified visual loss; J43.9 Emphysema, unspecified; G31.09 Other frontotemporal neurocognitive disorder; F02.81 Dementia in other diseases classified elsewhere, unspecified severity, with behavioral disturbance; K21.9 Gastro-esophageal reflux disease without esophagitis; K59.09 Other constipation; F41.9 Anxiety disorder, unspecified; F32.9 Major depressive disorder, single episode, unspecified; Z79.899 Other long term (current) drug therapy; Z91.14 Patient's other noncompliance with medication regimen
CPT/HCPCS: 36415; 70450; 80048; 80305; 81001; 83735; 84100; 84443; 85025; 93005; 96372 ×2; 99285; A9270 ×4; J1650; J3486; J1630; J2060; U0002